=== PATIENT | male | born 1960 | race Caucasian/White ===

== ENCOUNTER 2020-06-21 10:27 | Emergency (ER) | payer SELFPAY ==
[2020-06-21 11:42] LABS: ABSOLUTE EOSINOPHILS # (AUTO) 0.1 10^3/uL (0.0-0.6); ABSOLUTE LYMPHOCYTES (AUTO) 1.3 10^3/uL (0.5-4.7); ABSOLUTE MONOCYTES (AUTO) 0.5 10^3/uL (0.1-1.4); ABSOLUTE NEUT (AUTO) 2.7 10^3/uL (1.7-8.2); BASOPHILS % (AUTO) 0.7 % (0-2); EOSINOPHILS % (AUTO) 2.2 % (0-6); HEMATOCRIT 33.8 % (37.9-51.0); HEMOGLOBIN 11.9 g/dL (13.5-17.0); LYMPHOCYTES % (AUTO) 27.5 % (13-45); MEAN CORPUSCULAR HGB CONC 35.4 g/dL (32.0-36.0); MEAN CORPUSCULAR VOLUME 105 fl (80-97); RED BLOOD COUNT 3.23 10^6/uL (4.35-5.55); RED CELL DISTRIBUTION WIDTH 15.8 % (11.5-14.0); SEGMENTED NEUTROPHILS % (AUTO) 58.6 % (42-78); TOTAL CELLS COUNTED % (AUTO) 100 %; WHITE BLOOD COUNT 4.6 10^3/uL (4.0-10.5)
[2020-06-21 11:53] LABS: ALBUMIN 2.3 g/dL (3.5-5.0); ALKALINE PHOSPHATASE 360 U/L (38-126); ASPARTATE AMINO TRANSFERASE 113 U/L (17-59); BILIRUBIN,DIRECT 1.9 mg/dL (0.0-0.4); BILIRUBIN,TOTAL 3.4 mg/dL (0.2-1.3); BLOOD UREA NITROGEN 14 mg/dL (7-20); CALCIUM 7.8 mg/dL (8.4-10.2); CARBON DIOXIDE 20 mmol/L (22-30); CHLORIDE 114 mmol/L (98-107); GLUCOSE 108 mg/dL (75-110); TOTAL PROTEIN 6.6 g/dL (6.3-8.2)
[2020-06-21 11:54] LABS: PLATELET COUNT 54 10^3/uL (150-450)
[2020-06-21 12:02] LABS: ANION GAP 4 (5-19)
--- NOTE | 2020-06-21 14:37 | RADIOLOGY REPORT (SQ) ---
EXAM DESCRIPTION: CT ABD/PELVIS WITH IV ONLY IMAGES COMPLETED DATE/TIME: 06/21/2020 2:19 pm REASON FOR STUDY: pain/distention COMPARISON: None. TECHNIQUE: CT scan of the abdomen and pelvis performed using helical scanning technique with dynamic intravenous contrast injection. No oral contrast. Images reviewed with lung, soft tissue, and bone windows. Reconstructed coronal and sagittal MPR images reviewed. Delayed images for evaluation of the urinary system also acquired. All images stored on PACS. All CT scanners at this facility use dose modulation, iterative reconstruction, and/or weight based d osing when appropriate to reduce radiation dose to as low as reasonably achievable (ALARA). [facility]: Dose Right [facility]: CareDose [facility]: Dose Right [facility]: Teradose 4D [facility]: [employer] CONTRAST TYPE AND DOSE: contrast/concentration: Isovue 350.00 mmol/ml; Total Contrast Delivered: 91. 0 ml; Total Saline Delivered: 33.2 ml RENAL FUNCTION: BUN 14 creatinine 0.75. RADIATION DOSE: CT Rad equipment meets quality standard of care and radiation dose reduction techniq ues were employed. CTDIvol: 11.7 - 11.8 mGy. DLP: 1274 mGy-cm.. LIMITATIONS: None. FINDINGS: LOWER CHEST: No significant findings. No nodules or infiltrates. LIVER: Normal size. Possible mild nodular contour. No masses. No dilated ducts. SPLEEN: Normal size. No focal lesions. PANCREAS: No masses. No significant calcifications. No adjacent inflammation or peripancreatic fluid collections. Pancreatic duct not dilated. GALLBLADDER: No identified stones by CT criteria. No inflammatory changes to suggest cholecystitis. ADRENAL GLANDS: No significant masses or asymmetry. RIGHT KIDNEY AND URETER: No solid masses. No significant calcifications. No hydronephrosis or hyd roureter. LEFT KIDNEY AND URETER: No solid masses. No significant calcifications. No hydronephrosis or hydr oureter. AORTA AND VESSELS: No aneurysm. No dissection. Renal arteries, SMA, celiac without stenosis. RETROPERITONEUM: No retroperitoneal adenopathy, hemorrhage or masses. BOWEL AND PERITONEAL CAVITY: No masses or inflammatory changes. Moderate ascites. No peritoneal mas ses. APPENDIX: Normal. PELVIS: No mass. Normal bladder. ABDOMINAL WALL: No masses. No hernias. BONES: No significant or acute findings. OTHER: No other significant finding. IMPRESSION: MODERATE ASCITES. POSSIBLE MILD NODULAR CONTOUR OF THE LIVER WHICH MAY INDICATE UNDERLY ING CIRRHOSIS. NO OTHER SIGNIFICANT OR ACUTE FINDING IN THE ABDOMEN OR PELVIS ON CT SCAN WITH IV CON TRAST. TECHNICAL DOCUMENTATION: JOB ID: [id number] Quality ID # [id number]: Final reports with documentation of one or more dose reduction techniques (e.g., Au tomated exposure control, adjustment of the mA and/or kV according to patient size, use of iterative reconstruction technique) 2010 [employer]- All Rights Reserved Reading location - IP/workstation name: [email or web address]
--- NOTE | 2020-06-21 14:53 | ER Document Report ---
ED General - General Chief Complaint: Abdominal Swelling Stated Complaint: ABDOMINAL PAIN Time Seen by Provider: 06/21/20 11:10 Mode of Arrival: Ambulatory Information source: Patient - HPI Notes: Patient comes in complaining of abdominal pain. He states that he was recently admitted to an outside facility approxi-1 month ago and diagnosed with a stroke. He states that stroke is left him with foot drop and he has had to use a cane. He states over the last month or so he is noticed that his abdomen was come more distended and painful. And has had some vomiting. He states he does drink alcohol regularly and is still drinking. He states he was brought here by a friend today because he had been complaining about the abdominal pain. The abdominal pain is intermittent. It is mainly in the lower part of the abdomen. It is unknown what makes it better or worse. It does radiate across both sides of the abdomen. It appears to be mild to moderate in intensity and a crampy sensation. No chest pain or shortness of breath. He states he is not currently have a primary care physician. - Related Data Allergies/Adverse Reactions: No Known Allergies Allergy (Unverified 06/21/20 11:21) Past Medical History - General Information source: Patient - Social History Smoking Status: Current Every Day Smoker Chew tobacco use (# tins/day): No Frequency of alcohol use: 5-6 days ago last drink Drug Abuse: None Family History: Reviewed & Not Pertinent Patient has homicidal ideation: No Review of Systems - Review of Systems Constitutional: denies: Chills, Fever Cardiovascular: denies: Chest pain, Palpitations Respiratory: denies: Cough, Short of breath -: Yes All other systems reviewed and negative Physical Exam - Vital signs Vitals: Temp 97.8 F 06/21/20 10:29 Interpretation: Normal - General General appearance: Appears well, Alert - HEENT Head: Normocephalic, Atraumatic Eyes: Normal Pupils: PERRL - Respiratory Respiratory status: No respiratory distress Chest status: Nontender Breath sounds: Normal Chest palpation: Normal - Cardiovascular Rhythm: Regular Heart sounds: Normal auscultation Murmur: No - Abdominal Inspection: Obese Distension: Distended Bowel sounds: Hypoactive Tenderness: Tender - Back Back: Normal, Nontender - Extremities General upper extremity: Normal inspection, Nontender, Normal color, Normal ROM, Normal temperature General lower extremity: Normal inspection, Nontender, Normal color, Normal ROM, Normal temperature, Normal weight bearing. No: Zeenat's sign - Neurological Neuro grossly intact: Yes Cognition: Normal Orientation: AAOx4 Luz Maria Coma Scale Eye Opening: Spontaneous Luz Maria Coma Scale Verbal: Oriented Luz Maria Coma Scale Motor: Obeys Commands [place] Coma Scale Total: 15 Speech: Normal Motor strength normal: LUE, RUE, LLE, RLE Sensory: Normal - Psychological Associated symptoms: Normal affect, Normal mood - Skin Skin Temperature: Warm Skin Moisture: Dry Skin Color: Pale Course - Re-evaluation Re-evalutation: 06/21/20 14:44 Patient presents complaint of some weakness and abdominal distention and pain. He does appear to have cirrhosis and admits to drinking fairly regularly. I will give the patient discharge information about [facility] as well as discharge information on ceasing alcohol use. I am also going to refer the patient to outpatient gastroenterology for further evaluation. Patient's vital signs are stable labs are consistent with an alcoholic hepatitis but there are no s ignificant abnormalities requiring further evaluation in the emergency department. - Vital Signs Vital signs: Temp Pulse Resp BP Pulse Ox 97.8 F 06/21/20 10:29 - Laboratory Result Diagrams: 06/21/20 11:23 06/21/20 11:23 Laboratory results interpreted by me: 06/21/20 06/21/20 11:23 11:23 RBC 3.23 L Hgb 11.9 L Hct 33.8 L MCV 105 H MCH 37.0 H RDW 15.8 H Plt Count 54 L Chloride 114 H Carbon Dioxide 20 L Anion Gap 4 L Calcium 7.8 L Total Bilirubin 3.4 H Direct Bilirubin 1.9 H AST 113 H ALT 66 H Alkaline Phosphatase 360 H Albumin 2.3 L - Diagnostic Test Radiology reviewed: Image reviewed, Reports reviewed Discharge - Discharge Clinical Impression: Alcohol abuse, Alcoholic liver disease, unspecified Condition: Stable Disposition: HOME, SELF-CARE Instructions: Abdominal Pain ([facility]), Liver Function Abnormality ([facility]), Alcoholic Hepatitis ([facility]), Chronic Alcoholism ([facility]) Additional Instructions: If you dont stop drinking you are going to from liver disease. You need to follow up with Dr. Paniagua as soon as possible. If you are unable to get an appointment with Dr. Paniagua please go to [facility] or [facility] as soon as possible. [facility] can help you with your alcohol use. Please call them as soon as possible. Prescriptions: Chlordiazepoxide HCl 25 mg PO Q6 7 Days #28 capsule Referrals: SHERRI PANIAGUA MD [ACTIVE STAFF] - Follow up in 1 week [facility] [Provider Group] - Follow up in 3-5 days [facility] [Outside] - Follow up tomorrow
== END 2020-06-21 13:00 | disposition home or self-care (01) ==
LOC: ER 10:27
DX: F10.10 Alcohol abuse, uncomplicated (principal); K70.9 Alcoholic liver disease, unspecified; R14.0 Abdominal distension (gaseous); R53.1 Weakness; E66.9 Obesity, unspecified; F17.200 Nicotine dependence, unspecified, uncomplicated
CPT/HCPCS: 36415; 74177; 80053; 82140; 85025; 99285

== ENCOUNTER 2020-10-21 14:34 | Emergency (ER) | payer BC ==
--- NOTE | 2020-10-21 16:25 | ER Document Report ---
ED Medical Screen (RME) - General Stated Complaint: BLOATING, CHEST PAIN Time Seen by Provider: 10/21/20 16:04 Notes: Patient is 60-year-old male presents emergency department with a chief complaint of shortness of breath and chest pain. Patient reports that he has had his chest pain and shortness of breath for the past couple of months. 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 Exam: Firm abdomen. I have greeted and performed a rapid initial assessment of this patient. A comprehensive ED assessment and evaluation of the patient, analysis of test results and completion of medical decision making process will be conducted by an additional ED providers. - Related Data Allergies/Adverse Reactions: No Known Allergies Allergy (Unverified 06/21/20 11:21) Physical Exam - Vital signs Vitals: Temp Pulse Resp BP Pulse Ox 98.2 F 91 25 H 166/72 H 100 10/21/20 14:39 10/21/20 14:39 10/21/20 14:39 10/21/20 14:39 10/21/20 14:39 Course - Vital Signs Vital signs: Temp Pulse Resp BP Pulse Ox 98.2 F 91 25 H 166/72 H 100 10/21/20 14:39 10/21/20 14:39 10/21/20 14:39 10/21/20 14:39 10/21/20 14:39
--- NOTE | 2020-10-21 17:00 | RADIOLOGY REPORT (SQ) ---
EXAM DESCRIPTION: CHEST SINGLE VIEW IMAGES COMPLETED DATE/TIME: 10/21/2020 4:49 pm REASON FOR STUDY: chest pain COMPARISON: None. NUMBER OF VIEWS: One view. TECHNIQUE: Single frontal radiographic view of the chest acquired. LIMITATIONS: None. FINDINGS: LUNGS AND PLEURA: Low lung volumes. No opacities, masses or pneumothorax. No pleural eff usion. MEDIASTINUM AND HILAR STRUCTURES: No masses. No contour abnormality. HEART AND VASCULAR STRUCTURES: Normal size. No evidence for failure. BONES: No acute findings. HARDWARE: None in the chest. OTHER: No other significant finding. IMPRESSION: LOW LUNG VOLUMES. NO SIGNIFICANT RADIOGRAPHIC FINDING IN THE CHEST. TECHNICAL DOCUMENTATION: JOB ID: [id number] 2010 [employer]- All Rights Reserved Reading location - IP/workstation name: [email or web address]
[2020-10-21 17:46] LABS: ABSOLUTE BASOPHILS # (AUTO) 0.1 10^3/uL (0.0-0.2); ABSOLUTE EOSINOPHILS # (AUTO) 0.2 10^3/uL (0.0-0.6); ABSOLUTE LYMPHOCYTES (AUTO) 1.1 10^3/uL (0.5-4.7); ABSOLUTE MONOCYTES (AUTO) 0.8 10^3/uL (0.1-1.4); ABSOLUTE NEUT (AUTO) 2.6 10^3/uL (1.7-8.2); BASOPHILS % (AUTO) 1.2 % (0-2); EOSINOPHILS % (AUTO) 3.6 % (0-6); HEMATOCRIT 30.6 % (37.9-51.0); HEMOGLOBIN 10.8 g/dL (13.5-17.0); LYMPHOCYTES % (AUTO) 22.9 % (13-45); MEAN CORPUSCULAR HEMOGLOBIN 37.9 pg (27.0-33.4); MEAN CORPUSCULAR HGB CONC 35.4 g/dL (32.0-36.0); MEAN CORPUSCULAR VOLUME 107 fl (80-97); RED BLOOD COUNT 2.86 10^6/uL (4.35-5.55); RED CELL DISTRIBUTION WIDTH 17.2 % (11.5-14.0); SEGMENTED NEUTROPHILS % (AUTO) 55.3 % (42-78); TOTAL CELLS COUNTED % (AUTO) 100 %; WHITE BLOOD COUNT 4.8 10^3/uL (4.0-10.5)
[2020-10-21 17:54] LABS: ALBUMIN 2.6 g/dL (3.5-5.0); ALKALINE PHOSPHATASE 277 U/L (38-126); ASPARTATE AMINO TRANSFERASE 115 U/L (17-59); BILIRUBIN,DIRECT 1.3 mg/dL (0.0-0.4); BILIRUBIN,TOTAL 3.9 mg/dL (0.2-1.3); BLOOD UREA NITROGEN 19 mg/dL (7-20); CALCIUM 7.9 mg/dL (8.4-10.2); CREATINE KINASE 547 U/L (55-170); POTASSIUM 4.1 mmol/L (3.6-5.0); TOTAL PROTEIN 7.8 g/dL (6.3-8.2)
[2020-10-21 18:05] LABS: NT PRO BNP 128 pg/mL (<125)
[2020-10-21 18:15] LABS: TROPONIN I < 0.012 ng/mL
[2020-10-21 18:28] LABS: ANION GAP 4 (5-19)
[2020-10-21 18:29] LABS: CARBON DIOXIDE 27 mmol/L (22-30); CHLORIDE 110 mmol/L (98-107)
[2020-10-21 18:31] LABS: GLUCOSE 69 mg/dL (75-110)
[2020-10-21 18:46] LABS: PLATELET COUNT 59 10^3/uL (150-450)
[2020-10-21] MEDS ORDERED: OXYCODONE HCL IR 5 MG TABLET PO ONE (21:10)
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
[2020-10-21] MEDS ORDERED: LACTULOSE SYRUP 20 GM/30 ML UDCUP PO ONE (22:24)
[2020-10-21 22:48] LABS: INTERNATIONAL RATION (INR) 2.13; PROTHROMBIN TIME 23.9 SEC (11.4-15.4)
[2020-10-21 22:49] LABS: PARTIAL THROMBOPLASTIN TIME 38.9 SEC (23.5-35.8)
--- NOTE | 2020-10-22 00:22 | RADIOLOGY REPORT (SQ) ---
CT abdomen and pelvis with contrast on 10/21/2020 at 11:40 PM CLINICAL INDICATION: Generalized abdominal pain, history of cirrhosis TECHNIQUE: Multiple axial images are obtained throughout the abdomen and pelvis following the administration of IV contrast, 100 mL of Omnipaque 350contrast was administered intravenously without complication. This exam was performed according to our departmental dose-optimization program, which includes automated exposure control, adjustment of the mA and/or kV according to patient size and/or use of iterative reconstruction technique. Total DLP is 1886.47 mGy*cm. COMPARISON: 06/21/2020 FINDINGS: Abdomen: There is minimal bibasilar atelectasis. There is a slightly irregular contour of the liver consistent with changes of cirrhosis. Mild splenomegaly is noted with the spleen measuring 15.4 cm in greatest [id number] length. The solid abdominal organs are otherwise unremarkable. Large amount of ascites is noted in the abdomen and pelvis. Anasarca is noted in the subcutaneous tissues. There is no free air in the abdomen. Postsurgical changes are again noted along the distal stomach and proximal small bowel. There is no abdominal adenopathy. The abdominal portion of the GI tract is otherwise unremarkable. Pelvis: There are small left greater than right inguinal hernias containing only fat. Large amount of ascites is noted in the pelvis. There is no pelvic adenopathy. There is some mild wall thickening of the cecum and ascending colon likely bowel related changes of portal hypertension. The pelvic portion of the GI tract is otherwise unremarkable. Degenerative changes are noted in the spine. No acute bony abnormality is noted. IMPRESSION: 1. Changes of cirrhosis with mild splenomegaly and evidence of portal hypertension with large amount of ascites in the abdomen and pelvis. 2. Otherwise no acute abnormality.
--- NOTE | 2020-10-22 10:27 | RADIOLOGY REPORT (SQ) ---
EXAM DESCRIPTION: U/S ABD PARACENTESIS IMAGES COMPLETED DATE/TIME: 10/22/2020 10:16 am REASON FOR STUDY: Ascites COMPARISON: CT of the abdomen dated 10/21/2020. LIMITATIONS: None. PROCEDURE: Procedure, risks, benefit, and alternative explained to patient who then gave written con sent. The right lower abdominal wall marked using ultrasound guidance. A time-out was called for co rrect marking verification. Abdomen prepped and draped using sterile technique. Local anesthesia ach ieved using 7 ml of 1% lidocaine injection. A 6fr [id number] set was introduced into the perito tiburcio cavity. Fluid was drained. The catheter was removed and entry site was covered with sterile ba ndage. No immediate complications noted. Images acquired during the procedure were stored on PACS. FINDINGS: ENTRY SITE: right lower quadrant. FLUID VOLUME: 4,000 FLUID ANALYSIS: Straw-colored OTHER: Therapeutic only. IMPRESSION: SUCCESSFUL ULTRASOUND GUIDED PARACENTESIS. COMMENT: Patient medication list reviewed:Yes- Quality ID# [id number]:Eligible professional attests to docu menting in the medical record they obtained, updated, or reviewed the patient's current medications. TECHNICAL DOCUMENTATION: JOB ID: [id number] 2010 [employer]- All Rights Reserved Reading location - IP/workstation name: [email or web address]
[2020-10-22 13:04] VITALS: BP 140/71
--- NOTE | 2020-10-24 14:55 | EKG REPORT ---
SEVERITY:- OTHERWISE NORMAL ECG - SINUS RHYTHM LEFT AXIS DEVIATION : Confirmed by: Magdalena Almanzar 24-Oct-2020 14:54:13
== END 2020-10-22 13:03 | disposition home or self-care (01) ==
LOC: ER 14:34
DX: R18.8 Other ascites (principal); K74.69 Other cirrhosis of liver; R07.9 Chest pain, unspecified; R10.9 Unspecified abdominal pain; M79.89 Other specified soft tissue disorders; F17.210 Nicotine dependence, cigarettes, uncomplicated; I10 Essential (primary) hypertension
CPT/HCPCS: 36415; 49083; 71045; 74177; 80053; 82140; 82550; 82962; 83690; 83735; 83880; 84484; 85025; 85610; 85730; 93005; 93010; 99285; 99406

== ENCOUNTER 2020-10-24 12:42 | Emergency (ER) | payer BC ==
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
[2020-10-24 15:32] LABS: ABSOLUTE BASOPHILS # (AUTO) 0.1 10^3/uL (0.0-0.2); ABSOLUTE EOSINOPHILS # (AUTO) 0.2 10^3/uL (0.0-0.6); ABSOLUTE LYMPHOCYTES (AUTO) 1.1 10^3/uL (0.5-4.7); ABSOLUTE MONOCYTES (AUTO) 0.8 10^3/uL (0.1-1.4); ABSOLUTE NEUT (AUTO) 2.7 10^3/uL (1.7-8.2); EOSINOPHILS % (AUTO) 3.6 % (0-6); HEMATOCRIT 33.4 % (37.9-51.0); HEMOGLOBIN 11.5 g/dL (13.5-17.0); LYMPHOCYTES % (AUTO) 23.1 % (13-45); MEAN CORPUSCULAR HEMOGLOBIN 37.3 pg (27.0-33.4); MEAN CORPUSCULAR HGB CONC 34.3 g/dL (32.0-36.0); MEAN CORPUSCULAR VOLUME 109 fl (80-97); MONOCYTES % (AUTO) 16.6 % (3-13); RED BLOOD COUNT 3.08 10^6/uL (4.35-5.55); RED CELL DISTRIBUTION WIDTH 16.8 % (11.5-14.0); SEGMENTED NEUTROPHILS % (AUTO) 55.7 % (42-78); TOTAL CELLS COUNTED % (AUTO) 100 %; WHITE BLOOD COUNT 4.9 10^3/uL (4.0-10.5)
[2020-10-24 15:42] LABS: INTERNATIONAL RATION (INR) 1.97; PROTHROMBIN TIME 22.5 SEC (11.4-15.4)
[2020-10-24 15:43] LABS: PARTIAL THROMBOPLASTIN TIME 35.1 SEC (23.5-35.8)
[2020-10-24 15:48] LABS: APPEARANCE,URINE CLEAR; BILIRUBIN,URINE NEGATIVE (NEGATIVE); COLOR,URINE AMBER; GLUCOSE, URINE NEGATIVE (NEGATIVE); KETONES,URINE TRACE mg/dL (NEGATIVE); LEUKOCYTE ESTERASE,URINE NEGATIVE (NEGATIVE); NITRITE,URINE NEGATIVE (NEGATIVE); PROTEIN,URINE 30 mg/dL (NEGATIVE); URINE SPECIFIC GRAVITY 1.032
[2020-10-24 16:01] LABS: PLATELET COUNT 65 10^3/uL (150-450)
--- NOTE | 2020-10-24 16:11 | RADIOLOGY REPORT (SQ) ---
EXAM DESCRIPTION: CT ABD/PELVIS WITH IV ONLY IMAGES COMPLETED DATE/TIME: 10/24/2020 3:55 pm REASON FOR STUDY: Abdominal pain, distention, recent paracentesis COMPARISON: 10/21/2020 TECHNIQUE: CT scan of the abdomen and pelvis performed using helical scanning technique with dynamic intravenous contrast injection. No oral contrast. Images reviewed with lung, soft tissue, and bone windows. Reconstructed coronal and sagittal MPR images reviewed. Delayed images for evaluation of the urinary system also acquired. All images stored on PACS. All CT scanners at this facility use dose modulation, iterative reconstruction, and/or weight based d osing when appropriate to reduce radiation dose to as low as reasonably achievable (ALARA). [facility]: Dose Right [facility]: CareDose [facility]: Dose Right [facility]: Teradose 4D [facility]: PhilSmile CONTRAST TYPE AND DOSE: contrast/concentration: Isovue 350.00 mmol/ml; Total Contrast Delivered: 100 .0 ml; Total Saline Delivered: 60.0 ml RENAL FUNCTION: BUN 19, creatinine 0.64 RADIATION DOSE: CT Rad equipment meets quality standard of care and radiation dose reduction techniq ues were employed. CTDIvol: 16.5 - 20.7 mGy. DLP: 2071 mGy-cm.. LIMITATIONS: None. FINDINGS: LOWER CHEST: No significant findings. No nodules or infiltrates. LIVER: Stable from October 21. Cirrhotic in appearance. No focal masses P SPLEEN: Mild splenomegaly. PANCREAS: No masses. No significant calcifications. No adjacent inflammation or peripancreatic fluid collections. Pancreatic duct not dilated. GALLBLADDER: No identified stones by CT criteria. No inflammatory changes to suggest cholecystitis. ADRENAL GLANDS: No significant masses or asymmetry. RIGHT KIDNEY AND URETER: No solid masses. No significant calcifications. No hydronephrosis or hyd roureter. LEFT KIDNEY AND URETER: No solid masses. No significant calcifications. No hydronephrosis or hydr oureter. AORTA AND VESSELS: No aneurysm. No dissection. Renal arteries, SMA, celiac without stenosis. RETROPERITONEUM: No retroperitoneal adenopathy, hemorrhage or masses. BOWEL AND PERITONEAL CAVITY: Moderate volume ascites again noted slightly decreased from prior study. The patient has undergone paracentesis with 4000 mL of fluid removed. Probable small bowel wall th ickening related to the ascites. No obstruction. Postsurgical changes surrounding the stomach and p roximal duodenum. APPENDIX: Normal. PELVIS: No mass. No free fluid. Normal bladder. ABDOMINAL WALL: Subcutaneous emphysema is again noted. BONES: No significant or acute findings. OTHER: No other significant finding. IMPRESSION: No interval change. Moderate volume ascites slightly decreased from prior study. Appar ent small bowel wall edema is probably related to the ascites. Superimposed enteritis cannot be excl uded. No evidence of bowel obstruction. Nodular appearing liver consistent with cirrhosis. Mild splenomegaly. TECHNICAL DOCUMENTATION: JOB ID: [id number] Quality ID # [id number]: Final reports with documentation of one or more dose reduction techniques (e.g., Au tomated exposure control, adjustment of the mA and/or kV according to patient size, use of iterative reconstruction technique) 2010 [employer]- All Rights Reserved Reading location - IP/workstation name: [email or web address]
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
[2020-10-24] MEDS ORDERED: FENTANYL CITRATE INJ/PF 100 MCG/2 ML AMPUL IV ONE (19:26)
[2020-10-24] MEDS ORDERED: ONDANSETRON HCL INJ/PF 4 MG/2 ML SDV IV ONE (19:26)
[2020-10-24 19:39] LABS: ALBUMIN 2.1 g/dL (3.5-5.0); ALKALINE PHOSPHATASE 285 U/L (38-126); ASPARTATE AMINO TRANSFERASE 98 U/L (17-59); BILIRUBIN,TOTAL 2.7 mg/dL (0.2-1.3); BLOOD UREA NITROGEN 15 mg/dL (7-20); CALCIUM 7.3 mg/dL (8.4-10.2); CARBON DIOXIDE 23 mmol/L (22-30); CHLORIDE 112 mmol/L (98-107); GLUCOSE 86 mg/dL (75-110); TOTAL PROTEIN 6.5 g/dL (6.3-8.2)
[2020-10-24 19:44] LABS: ANION GAP 2 (5-19)
[2020-10-24 20:50] VITALS: BP 139/91
== END 2020-10-24 21:37 | disposition home or self-care (01) ==
LOC: ER 12:42
DX: K74.60 Unspecified cirrhosis of liver (principal); R18.8 Other ascites; R16.1 Splenomegaly, not elsewhere classified; R10.32 Left lower quadrant pain; D68.9 Coagulation defect, unspecified; I10 Essential (primary) hypertension; F17.210 Nicotine dependence, cigarettes, uncomplicated; Z98.890 Other specified postprocedural states
CPT/HCPCS: 99285; 96374; 96375; 36415; 87040; 83605; 83690; 85025; 85610; 85730; 86140; 87077; 80053; 81001; 74177; J3010; J2405

== ENCOUNTER 2020-11-09 17:01 | Inpatient (IN) | payer BC ==
[2020-11-09 18:10] LABS: VENOUS BLOOD BASE EXCESS -1.3 mmol/L; VENOUS BLOOD HCO3 21.8 mmol/L (20-32); VENOUS BLOOD PCO2 32.8 mmHg (35-63); VENOUS BLOOD PH 7.44 (7.30-7.42)
[2020-11-09 18:14] LABS: ABSOLUTE EOSINOPHILS # (AUTO) 0.1 10^3/uL (0.0-0.6); ABSOLUTE MONOCYTES (AUTO) 0.9 10^3/uL (0.1-1.4); ABSOLUTE NEUT (AUTO) 6.5 10^3/uL (1.7-8.2); BASOPHILS % (AUTO) 0.6 % (0-2); EOSINOPHILS % (AUTO) 1.2 % (0-6); HEMATOCRIT 32.3 % (37.9-51.0); HEMOGLOBIN 11.1 g/dL (13.5-17.0); INTERNATIONAL RATION (INR) 2.79; LYMPHOCYTES % (AUTO) 11.7 % (13-45); MEAN CORPUSCULAR HEMOGLOBIN 36.3 pg (27.0-33.4); MEAN CORPUSCULAR HGB CONC 34.4 g/dL (32.0-36.0); MEAN CORPUSCULAR VOLUME 106 fl (80-97); MONOCYTES % (AUTO) 10.9 % (3-13); PROTHROMBIN TIME 29.3 SEC (11.4-15.4); RED BLOOD COUNT 3.07 10^6/uL (4.35-5.55); RED CELL DISTRIBUTION WIDTH 14.7 % (11.5-14.0); SEGMENTED NEUTROPHILS % (AUTO) 75.6 % (42-78); TOTAL CELLS COUNTED % (AUTO) 100 %; WHITE BLOOD COUNT 8.6 10^3/uL (4.0-10.5)
[2020-11-09 18:16] LABS: ALBUMIN 2.2 g/dL (3.5-5.0); ALKALINE PHOSPHATASE 151 U/L (38-126); ASPARTATE AMINO TRANSFERASE 132 U/L (17-59); BILIRUBIN,DIRECT 2.2 mg/dL (0.0-0.4); BILIRUBIN,TOTAL 6.1 mg/dL (0.2-1.3); BLOOD UREA NITROGEN 35 mg/dL (7-20); CALCIUM 7.7 mg/dL (8.4-10.2); CARBON DIOXIDE 21 mmol/L (22-30); CHLORIDE 116 mmol/L (98-107); GLUCOSE 72 mg/dL (75-110); POTASSIUM 4.1 mmol/L (3.6-5.0); TOTAL PROTEIN 6.5 g/dL (6.3-8.2)
[2020-11-09 18:18] LABS: ANION GAP 4 (5-19)
--- NOTE | 2020-11-09 18:23 | RADIOLOGY REPORT (SQ) ---
EXAM DESCRIPTION: CHEST SINGLE VIEW IMAGES COMPLETED DATE/TIME: 11/09/2020 4:58 pm REASON FOR STUDY: possible sepsis COMPARISON: 10/21/2020 EXAM PARAMETERS: NUMBER OF VIEWS: One view. TECHNIQUE: Single frontal radiographic view of the chest acquired. RADIATION DOSE: NA LIMITATIONS: Lordotic positioning. FINDINGS: LUNGS AND PLEURA: No opacities, masses or pneumothorax. No pleural effusion. MEDIASTINUM AND HILAR STRUCTURES: No masses. Contour normal. HEART AND VASCULAR STRUCTURES: Heart normal in size. Normal vasculature. BONES: No acute findings. HARDWARE: None in the chest. OTHER: No other significant finding. IMPRESSION: NO ACUTE RADIOGRAPHIC FINDING IN THE CHEST. TECHNICAL DOCUMENTATION: JOB ID: [id number] 2010 [employer]- All Rights Reserved Reading location - IP/workstation name: [id number]
[2020-11-09 18:33] LABS: PLATELET COUNT 66 10^3/uL (150-450)
--- NOTE | 2020-11-09 19:26 | EKG REPORT ---
SEVERITY:- OTHERWISE NORMAL ECG - SINUS RHYTHM LEFT AXIS DEVIATION : Confirmed by: Jason Rose MD 09-Nov-2020 19:25:37
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
[2020-11-09] MEDS ORDERED: DEXTROSE 5%-NORMAL SALINE 1,000 ML IV ONE (19:53)
[2020-11-09 20:09] LABS: ACETAMINOPHEN < 10 ug/mL (10-30); ALCOHOL < 10 mg/dL (NONE DETECTED); SALICYLATE < 1.0 mg/dL (2.0-20.0)
[2020-11-09] MEDS ORDERED: LACTULOSE SYRUP 20 GM/30 ML UDCUP PO ONE (20:21)
--- NOTE | 2020-11-09 21:09 | RADIOLOGY REPORT (SQ) ---
EXAM DESCRIPTION: CT HEAD WITHOUT IV CONTRAST COMPLETED DATE/TME: 11/09/2020 20:31 CLINICAL HISTORY: 60 years, Male, AMS, eval bleed COMPARISON: None. TECHNIQUE: Axial images without IV contrast. Sagittal coronal reconstruction. Images stored on PACS. All CT scanners at this facility use dose modulation, iterative reconstruction, and/or weight based dosing when appropriate to reduce radiation dose to as low as reasonably achievable (ALARA). FINDINGS: Mild central and cortical atrophy. 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 No obvious acute intra-axial or extra-axial abnormality. Minimal mucosal thickening left maxillary sinus. Mastoid air cells and bony calvarium are unremarkable. Suggestion of mild scalp hematoma in the posterior vertex on the left. IMPRESSION: 1. No acute intracranial abnormalities. 2. Mild left maxillary sinus disease. 3. Suggestion of small scalp hematoma left vertex. TECHNICAL DOCUMENTATION: Quality ID # 436: Final reports with documentation of one or more dose reduction techniques (e.g., Automated exposure control, adjustment of the mA and/or kV according to patient size, use of iterative reconstruction technique) copyright 2011 [employer]- All Rights Reserved
--- OUTSIDE RECORDS SUMMARY | 2020-11-09 21:11 | XMS REPORT ---
:1960 Author Organization [facility] Address [facility] [address] [place] [address] Care Team Providers Name Role Phone Unavailable Unavailable Unavailable Allergies, Adverse Reactions, Alerts This patient has no known allergies or adverse reactions. Medications This patient has no known medications. Problems This patient has no known problems. Procedures This patient has no known procedures. Results This patient has no known results. Social History This patient has no known social history. Vital Signs This patient has no known vital signs.
[2020-11-09 22:59] LABS: APPEARANCE,URINE CLEAR; BILIRUBIN,URINE NEGATIVE (NEGATIVE); COLOR,URINE AMBER; GLUCOSE, URINE NEGATIVE (NEGATIVE); KETONES,URINE TRACE mg/dL (NEGATIVE); LEUKOCYTE ESTERASE,URINE NEGATIVE (NEGATIVE); NITRITE,URINE NEGATIVE (NEGATIVE); PROTEIN,URINE 30 mg/dL (NEGATIVE)
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
[2020-11-09] MEDS ORDERED: THIAMINE HCL 100 MG in NORMAL SALINE 50 ML IV ONE (23:18)
[2020-11-09 23:19] LABS: URINE AMPHETAMINES SCREEN NEGATIVE; URINE BARBITURATES SCREEN NEGATIVE; URINE BENZODIAZEPINES SCREEN NEGATIVE; URINE COCAINE SCREEN NEGATIVE; URINE METHADONE SCREEN NEGATIVE; URINE PHENCYCLIDINE SCREEN NEGATIVE
[2020-11-09 23:20] LABS: URINE MARIJUANA (THC) SCREEN UNCONFIRMED POSITIVE
[2020-11-10] MEDS ORDERED: THIAMINE HCL INJ 200 MG/2 ML VIAL ONE (00:04)
[2020-11-10] MEDS ORDERED: LACTULOSE SYRUP 20 GM/30 ML UDCUP PO PRN (04:00)
[2020-11-10 06:36] LABS: ABSOLUTE EOSINOPHILS # (AUTO) 0.2 10^3/uL (0.0-0.6); ABSOLUTE LYMPHOCYTES (AUTO) 1.4 10^3/uL (0.5-4.7); ABSOLUTE MONOCYTES (AUTO) 0.7 10^3/uL (0.1-1.4); ABSOLUTE NEUT (AUTO) 4.2 10^3/uL (1.7-8.2); ABSOLUTE RETICS # 0.052 10^6/uL (0.028-0.122); BASOPHILS % (AUTO) 0.5 % (0-2); EOSINOPHILS % (AUTO) 3.2 % (0-6); HEMATOCRIT 27.9 % (37.9-51.0); HEMOGLOBIN 9.7 g/dL (13.5-17.0); LYMPHOCYTES % (AUTO) 21.5 % (13-45); MEAN CORPUSCULAR HEMOGLOBIN 37.3 pg (27.0-33.4); MEAN CORPUSCULAR VOLUME 107 fl (80-97); MONOCYTES % (AUTO) 10.9 % (3-13); RED BLOOD COUNT 2.61 10^6/uL (4.35-5.55); RETICULOCYTE COUNT (AUTO) 1.99 % (0.66-2.85); SEGMENTED NEUTROPHILS % (AUTO) 63.9 % (42-78); TOTAL CELLS COUNTED % (AUTO) 100 %; WHITE BLOOD COUNT 6.6 10^3/uL (4.0-10.5)
[2020-11-10 06:40] LABS: INTERNATIONAL RATION (INR) 2.81; PROTHROMBIN TIME 29.5 SEC (11.4-15.4)
[2020-11-10 07:37] LABS: PLATELET COUNT 47 10^3/uL (150-450)
[2020-11-10 08:01] LABS: ALKALINE PHOSPHATASE 131 U/L (38-126); ANION GAP 3 (5-19); ASPARTATE AMINO TRANSFERASE 131 U/L (17-59); BILIRUBIN,TOTAL 5.1 mg/dL (0.2-1.3); BLOOD UREA NITROGEN 36 mg/dL (7-20); CALCIUM 7.9 mg/dL (8.4-10.2); CARBON DIOXIDE 21 mmol/L (22-30); CHLORIDE 117 mmol/L (98-107); FOLATE 7.86 ng/mL (>2.76); GLUCOSE 68 mg/dL (75-110); IRON(TIBC) 74.5 ug/dL (49-181); POTASSIUM 3.9 mmol/L (3.6-5.0); TOTAL PROTEIN 6.2 g/dL (6.3-8.2)
[2020-11-10] MEDS ORDERED: PROMETHAZINE HCL 6.25 MG/5 ML SYRUP 60 ML PO PRN (09:59)
[2020-11-10] MEDS ORDERED: METOPROLOL TARTRATE PF/INJ 5 MG/5 ML SDV IV PRN (09:59)
[2020-11-10] MEDS ORDERED: ONDANSETRON 4 MG TAB.RAPDIS PO PRN (09:59)
[2020-11-10] MEDS ORDERED: PROMETHAZINE HCL INJ 25 MG/1 ML VIAL IV PRN (09:59)
[2020-11-10] MEDS ORDERED: ONDANSETRON HCL INJ/PF 4 MG/2 ML SDV IV PRN (09:59)
[2020-11-10] MEDS ORDERED: THIAMINE HCL 100 MG in NORMAL SALINE 50 ML IV SCH (10:00)
[2020-11-10] MEDS ORDERED: MULTIVITS W-MIN/IRON SOLN 60 ML PO SCH (10:00)
[2020-11-10] MEDS: LACTULOSE SYRUP 20 GM/30 ML UDCUP PO SCH ×3 (10:18→21:36)
[2020-11-10] MEDS: THIAMINE HCL 100 MG TABLET PO SCH (10:18)
[2020-11-10] MEDS: SPIRONOLACTONE 25 MG TABLET PO SCH (10:19)
[2020-11-10] MEDS: FUROSEMIDE 40 MG TABLET PO SCH (10:19)
[2020-11-10] MEDS: FOLIC ACID 1 MG TABLET PO SCH (10:19)
[2020-11-10] MEDS: CYANOCOBALAMIN (VITAMIN B-12) INJ 1000 MCG/1 ML VIAL IM SCH (10:20)
--- NOTE | 2020-11-10 10:49 | PDOC PROGRESS REPORT ---
Subjective Date:: 11/10/20 Subjective:: As per attending physician's note CRISTINA BROWNE is a 60 year old male The patient is suffering from alcoholic liver cirrhosis with ascites. He had abdominal paracentesis on 22 October, 4 L of fluid was removed. CT scan of the abdomen and pelvis couple days later revealed cirrhosis with ascites and splenomegaly, no other significant abnormality. It is somewhat unclear whether the patient quit drinking or not. He lives alone but he has some friend who is visiting him time to time. Today he was found in his apartment being confused and the apartment was in a disarray. He was brought to the emergency department. After first dose of lactulose he is alert now. He is still s omewhat confused but cooperative and pleasant. He is oriented to himself, partially oriented to time place and situation. He denies any pain and he does not appear to be in any discomfort. 11/10/2019. No acute events overnight, patient resting in bed no apparent distress, alert and oriented x2, stating that he has a rough night, does not elaborate, denies any auditory visual hallucinations, denies any chest pain, nausea, vomiting, diarrhea. Reason For Visit: HEPATIC ENCEPHALOPATHY,LIVER CIRRHOSIS WITH Physical Exam Vital Signs: Temp Pulse Resp BP Pulse Ox 97.4 F 75 18 110/53 L 96 11/10/20 08:14 11/10/20 08:00 11/10/20 08:00 11/10/20 08:00 11/10/20 08:00 Intake & Output 11/09/20 11/10/20 11/11/20 06:59 06:59 06:59 Intake Total 1050 Balance 1050 Weight 92.2 kg General appearance: PRESENT: no acute distress, obese, well-developed, well- nourished Head exam: PRESENT: atraumatic, normocephalic Neck exam: ABSENT: carotid bruit, JVD, lymphadenopathy, thyromegaly Respiratory exam: PRESENT: clear to auscultation andree. ABSENT: rales, rhonchi, wheezes Cardiovascular exam: PRESENT: RRR. ABSENT: diastolic murmur, rubs, systolic murmur GI/Abdominal exam: PRESENT: ascites, distended, normal bowel sounds, tenderness - Epigastric tenderness, other - Fluid wave. ABSENT: guarding, mass, organolmegaly, rebound Extremities exam: PRESENT: full ROM. ABSENT: calf tenderness, clubbing, pedal edema Neurological exam: PRESENT: alert, awake, oriented to person, oriented to place, CN II-XII grossly intact. ABSENT: motor sensory deficit Skin exam: PRESENT: petechiae - Bilateral lower extremity worse on the left side. Results Laboratory Results: 11/10/20 05:57 11/10/20 05:57 11/09/20 11/09/20 11/09/20 17:16 17:16 17:16 WBC 8.6 RBC 3.07 L Hgb 11.1 L Hct 32.3 L MCV 106 H MCH 36.3 H MCHC 34.4 RDW 14.7 H Plt Count 66 L Seg Neutrophils % 75.6 Retic Count (auto) VBG pH 7.44 H VBG pCO2 32.8 L VBG HCO3 21.8 VBG Base Excess -1.3 Sodium 141.0 Potassium 4.1 Chloride 116 H Carbon Dioxide 21 L Anion Gap 4 L BUN 35 H Creatinine 0.65 Est GFR ( Amer) > 60 Glucose 72 L Lactic Acid Calcium 7.7 L Magnesium Iron TIBC % Saturation Ferritin Total Bilirubin 6.1 H AST 132 H Alkaline Phosphatase 151 H Ammonia Total Protein 6.5 Albumin 2.2 L Vitamin B12 Folate TSH Urine Color Urine Appearance Urine pH Ur Specific [place] Urine Protein Urine Glucose (UA) Urine Ketones Urine Blood Urine Nitrite Ur Leukocyte Esterase Urine WBC (Auto) Urine RBC (Auto) 11/09/20 11/09/20 11/09/20 17:16 19:41 20:55 WBC RBC Hgb Hct MCV MCH MCHC RDW Plt Count Seg Neutrophils % Retic Count (auto) VBG pH VBG pCO2 VBG HCO3 VBG Base Excess Sodium Potassium Chloride Carbon Dioxide Anion Gap BUN Creatinine Est GFR ( Amer) Glucose Lactic Acid 3.4 H 1.9 Calcium Magnesium Iron TIBC % Saturation Ferritin Total Bilirubin AST Alkaline Phosphatase Ammonia 91.3 H Total Protein Albumin Vitamin B12 Folate TSH Urine Color Urine Appearance Urine pH Ur Specific [place] Urine Protein Urine Glucose (UA) Urine Ketones Urine Blood Urine Nitrite Ur Leukocyte Esterase Urine WBC (Auto) Urine RBC (Auto) 11/09/20 11/10/20 11/10/20 21:52 01:37 05:57 WBC 6.6 RBC 2.61 L Hgb 9.7 L Hct 27.9 L MCV 107 H MCH 37.3 H MCHC 35.0 RDW 15.0 H Plt Count 47 L Seg Neutrophils % 63.9 Retic Count (auto) 1.99 VBG pH VBG pCO2 VBG HCO3 VBG Base Excess Sodium Potassium Chloride Carbon Dioxide Anion Gap BUN Creatinine Est GFR ( Amer) Glucose Lactic Acid 1.6 Calcium Magnesium Iron TIBC % Saturation Ferritin Total Bilirubin AST Alkaline Phosphatase Ammonia Total Protein Albumin Vitamin B12 Folate TSH Urine Color LEIGH ANN Urine Appearance CLEAR Urine pH 5.0 Ur Specific [place] 1.030 Urine Protein 30 H Urine Glucose (UA) NEGATIVE Urine Ketones TRACE H Urine Blood NEGATIVE Urine Nitrite NEGATIVE Ur Leukocyte Esterase NEGATIVE Urine WBC (Auto) 1 Urine RBC (Auto) 0 11/10/20 11/10/20 05:57 05:57 WBC RBC Hgb Hct MCV MCH MCHC RDW Plt Count Seg Neutrophils % Retic Count (auto) VBG pH VBG pCO2 VBG HCO3 VBG Base Excess Sodium 140.5 Potassium 3.9 Chloride 117 H Carbon Dioxide 21 L Anion Gap 3 L BUN 36 H Creatinine 0.65 Est GFR ( Amer) > 60 Glucose 68 L Lactic Acid Calcium 7.9 L Magnesium 1.8 Iron 74.5 TIBC 221 L % Saturation 34 Ferritin 241.00 Total Bilirubin 5.1 H AST 131 H Alkaline Phosphatase 131 H Ammonia Total Protein 6.2 L Albumin 2.0 L Vitamin B12 999.0 H Folate 7.86 TSH 7.44 H Urine Color Urine Appearance Urine pH Ur Specific [place] Urine Protein Urine Glucose (UA) Urine Ketones Urine Blood Urine Nitrite Ur Leukocyte Esterase Urine WBC (Auto) Urine RBC (Auto) Impressions: Chest X-Ray 11/09/20 17:48 IMPRESSION: NO ACUTE RADIOGRAPHIC FINDING IN THE CHEST. Head CT 11/09/20 20:04 IMPRESSION: 1. No acute intracranial abnormalities. 2. Mild left maxillary sinus disease. 3. Suggestion of small scalp hematoma left vertex. TECHNICAL DOCUMENTATION: Quality ID # 436: Final reports with documentation of one or more dose reduction techniques (e.g., Automated exposure control, adjustment of the mA and/or kV according to patient size, use of iterative reconstruction technique) copyright 2011 [employer] All Rights Reserved Assessment and Plan - Diagnosis (1) Acute hepatic encephalopathy Is this a current diagnosis for this admission?: Yes Plan: Most likely due to acute hepatic encephalopathy, presented with elevated ammonia level. Improving. Continue lactulose, titrate to have 3 soft bowel movements 24 hours, continue rifaximin. Continue Lasix and spironolactone, monitor vitals, fall precautions. (2) Alcohol abuse Is this a current diagnosis for this admission?: Yes Plan: Denies any visual or auditory hallucination. Denies any formication. Vitals stable. Continue fall, seizure and DT precautions. As needed benzodiazepines, folic acid, thiamine, B12 and multivitamins. (3) Alcoholic cirrhosis of liver Qualifiers: Ascites presence: with ascites Qualified Code(s): K70.31 - Alcoholic cirrhosis of liver with ascites Is this a current diagnosis for this admission?: Yes Plan: Due to alcoholic cirrhosis. Tense ascites with epigastric abdominal pain on examination. Bilateral lower extremity petechiae, thrombocytopenia and elevated PT/INR. Last paracentesis every second, 4 L removed. Continue hepatic diet, fall precaution, monitor for bleeding. Lasix, spironolactone, rifaximin, lactulose. It is unclear whether he had EGD or not. He said he sees a liver specialist but he could not specify where is the specialist and who is a specialist. I am not quite convinced that he sees a travel director. (4) Macrocytic anemia Is this a current diagnosis for this admission?: Yes Plan: Check anemia studies. Monitor hemoglobin. (5) Thrombocytopenia Is this a current diagnosis for this admission?: Yes Plan: Most likely due to underlying cirrhosis. Monitor for any sign of bleeding. Fall precautions. Supportive transfusions. - Time Time Spent with patient: 35 or more minutes Medications reviewed and adjusted accordingly: Yes Anticipated Discharge Disposition: Home, Self Care Anticipated Discharge Timeframe: within 72 hours
[2020-11-10] MEDS ORDERED: PHYTONADIONE 5 MG TABLET PO ONE (11:00)
[2020-11-10] MEDS: FERROUS SULFATE 325 MG TABLET PO SCH (13:40)
[2020-11-10] MEDS: CEFTRIAXONE SODIUM 1,000 MG in DEXTROSE 5%-WATER 50 ML IV SCH (13:41)
[2020-11-10] MEDS: MULTIVITS W-MIN/IRON SOLN 60 ML PO SCH (13:42)
[2020-11-11] MEDS: LACTULOSE SYRUP 20 GM/30 ML UDCUP PO SCH ×3 (05:19→22:29)
--- NOTE | 2020-11-11 09:54 | XCELERA REPORT ---
[address] [address] Transthoracic Echocardiogram Report Name: CRISTINA BROWNE Age: 60 yrs Gender: Male : 1960 Patient Status: Inpatient Patient Location: [address] [place] [address] Study Date: 11/10/2020 09:07 AM Height: 68 in Weight: 200 lb BSA: 2.0 m2 Procedure: A complete two-dimensional transthoracic echocardiogram was performed (2D, M-mode, spectral and color flow Doppler). The study was technically good with many images being of high quality. Reason For Study: edema Ordering Physician: FORTINO BANKS Performed By: Hue Silverman Interpretation Summary The left ventricle is normal in size. Left ventricular systolic function is normal. The Ejection Fraction estimate is 65-70%. Doppler measurements suggest impaired left ventricular relaxation, which is associated with grade I/IV or mild diastolic dysfunction. No regional wall motion abnormalities noted. Mild LAE. Trace MR, trace TR. There is a mobile, long, thin echo dense strand in the hepatic vein of unclear etiology. Please consider further evaluation with dedicated liver/hepatic vein ultrasound. MMode/2D Measurements & Calculations RVDd: 2.8 cm LVIDd: 4.9 cm FS: 43.4 % Ao root diam: 3.0 cm IVSd: 1.3 cm LVIDs: 2.8 cm EDV(Teich): 115.3 ml Ao root area: 6.9 cm2 LVPWd: 1.0 cm ESV(Teich): 29.6 ml EF(Teich): 74.3 % Doppler Measurements & Calculations MV E max margot: MV dec slope: Ao V2 max: LV V1 max P.5 cm/sec 384.4 cm/sec2 181.8 cm/sec 7.4 mmHg MV A max margot: MV dec time: 0.21 secAo max PG: LV V1 max: 89.7 cm/sec 13.2 mmHg 135.6 cm/sec MV E/A: 0.90 PA V2 max: TR max margot: 142.5 cm/sec 236.7 cm/sec PA max P.1 mmHg TR max P.4 mmHg Left Ventricle The left ventricle is normal in size. Left ventricular systolic function is normal. The Ejection Fraction estimate is 65-70%. Doppler measurements suggest impaired left ventricular relaxation, which is associated with grade I/IV or mild diastolic dysfunction. No regional wall motion abnormalities noted. Right Ventricle The right ventricle is grossly normal size. The right ventricular systolic function is normal. Atria The right atrium is normal. The left atrium is mildly dilated. The interatrial septum is difficult to see, but appears to be grossly normal. Mitral Valve The mitral valve leaflets appear thickened, but open well. There is a trace amount of mitral regurgitation. Aortic Valve The aortic valve is sclerotic, but shows no functional abnormality. No aortic regurgitation is present. Tricuspid Valve The tricuspid valve is not well visualized secondary to technical limitations. There is a trace or physiologic amount of tricuspid regurgitation. Pulmonic Valve The pulmonic valve is not well visualized. There is no pulmonic valvular regurgitation. Great Vessels The aortic root is normal size. The inferior vena cava appeared normal and decreased > 50% with respiration (RAP 5-10 mmHg). Effusions There is no pericardial effusion. Incidental Findings There is a mobile, long, thin echo dense strand in the hepatic vein of unclear etiology. Please consider further evaluation with dedicated liver/hepatic vein ultrasound. : FORTINO BANKS Antonio
[2020-11-11] MEDS: FUROSEMIDE 40 MG TABLET PO SCH (10:43)
[2020-11-11] MEDS: FERROUS SULFATE 325 MG TABLET PO SCH (10:44)
[2020-11-11] MEDS: CYANOCOBALAMIN (VITAMIN B-12) INJ 1000 MCG/1 ML VIAL IM SCH (10:44)
[2020-11-11] MEDS: FOLIC ACID 1 MG TABLET PO SCH (10:44)
[2020-11-11] MEDS: SPIRONOLACTONE 25 MG TABLET PO SCH (10:44)
[2020-11-11] MEDS: THIAMINE HCL 100 MG TABLET PO SCH (10:44)
[2020-11-11] MEDS: MULTIVITS W-MIN/IRON SOLN 60 ML PO SCH (10:45)
--- NOTE | 2020-11-11 11:01 | PDOC PROGRESS REPORT ---
Subjective Date:: 11/11/20 Subjective:: As per attending physician's note CRISTINA BROWNE is a 60 year old male The patient is suffering from alcoholic liver cirrhosis with ascites. He had abdominal paracentesis on 22 October, 4 L of fluid was removed. CT scan of the abdomen and pelvis couple days later revealed cirrhosis with ascites and splenomegaly, no other significant abnormality. It is somewhat unclear whether the patient quit drinking or not. He lives alone but he has some friend who is visiting him time to time. Today he was found in his apartment being confused and the apartment was in a disarray. He was brought to the emergency department. After first dose of lactulose he is alert now. He is still s omewhat confused but cooperative and pleasant. He is oriented to himself, partially oriented to time place and situation. He denies any pain and he does not appear to be in any discomfort. 11/10/2019. No acute events overnight, patient resting in bed no apparent distress, alert and oriented x2, stating that he has a rough night, does not elaborate, denies any auditory visual hallucinations, denies any chest pain, nausea, vomiting, diarrhea. 11/11/2020. No acute events overnight. Stating that he had a better night compared to yesterday, alert and oriented x3 in no apparent distress, denies any auditory or visual hallucinations, complaining of posterior headache, does not remember how he ended up to the hospital or that he had a fall, stating that he lives in a trailer with another friend who is currently out of state in [place], does have some family in [place] but he lives with another friend. Patient denies any fever, chills, nausea, vomiting, diarrhea, constipation or any urinary symptoms. Reason For Visit: HEPATIC ENCEPHALOPATHY,LIVER CIRRHOSIS WITH Physical Exam Vital Signs: Temp Pulse Resp BP Pulse Ox 97.8 F 70 22 H 109/72 97 11/11/20 08:29 11/11/20 08:29 11/11/20 08:29 11/11/20 08:29 11/11/20 08:29 Intake & Output 11/10/20 11/11/20 11/12/20 06:59 06:59 06:59 Intake Total 1050 Output Total 275 Balance 1050 -275 Weight 92.2 kg 94.5 kg General appearance: PRESENT: no acute distress, well-developed, well-nourished Head exam: PRESENT: atraumatic, normocephalic, other - Right mid occipital region tenderness. Neck exam: ABSENT: carotid bruit, JVD, lymphadenopathy, thyromegaly Respiratory exam: PRESENT: clear to auscultation andree. ABSENT: rales, rhonchi, wheezes Cardiovascular exam: PRESENT: RRR. ABSENT: diastolic murmur, rubs, systolic murmur GI/Abdominal exam: PRESENT: distended, normal bowel sounds, soft, tenderness - Epigastric. ABSENT: guarding, mass, organolmegaly, rebound Extremities exam: PRESENT: +2 edema Neurological exam: PRESENT: alert, awake, oriented to person, oriented to place, CN II-XII grossly intact. ABSENT: motor sensory deficit Skin exam: PRESENT: petechiae - Bilateral lower extremity worse on the right side. Results Laboratory Results: 11/10/20 05:57 11/10/20 05:57 11/11/20 05:43 Free T4 1.44 Impressions: Chest X-Ray 11/09/20 17:48 IMPRESSION: NO ACUTE RADIOGRAPHIC FINDING IN THE CHEST. Head CT 11/09/20 20:04 IMPRESSION: 1. No acute intracranial abnormalities. 2. Mild left maxillary sinus disease. 3. Suggestion of small scalp hematoma left vertex. TECHNICAL DOCUMENTATION: Quality ID # 436: Final reports with documentation of one or more dose reduction techniques (e.g., Automated exposure control, adjustment of the mA and/or kV according to patient size, use of iterative reconstruction technique) copyright 2011 [employer]- All Rights Reserved Assessment and Plan - Diagnosis (1) Acute hepatic encephalopathy Is this a current diagnosis for this admission?: Yes Plan: Seems to be back at baseline, patient alert and oriented x3, cooperative and pleasant. Most likely due to hepatic encephalopathy Presented with elevated ammonia level. Continue lactulose, titrate to have 3 soft bowel movements 24 hours, continue rifaximin. Continue Lasix and spironolactone, monitor vitals, fall precautions. (2) Alcohol abuse Is this a current diagnosis for this admission?: Yes Plan: Does not appear to be acutely withdrawing. Denies any visual or auditory hallucination. Denies any formication. Vitals stable. Continue fall, seizure and DT precautions. As needed benzodiazepines, folic acid, thiamine, B12 and multivitamins. (3) Alcoholic cirrhosis of liver Qualifiers: Ascites presence: with ascites Qualified Code(s): K70.31 - Alcoholic cirrho sis of liver with ascites Is this a current diagnosis for this admission?: Yes Plan: Due to alcoholic cirrhosis. Presented with tense ascites with epigastric abdominal pain on examination. Bilateral lower extremity petechiae, thrombocytopenia and elevated PT/INR. Last paracentesis every second, 4 L removed. Continue hepatic diet, fall precaution, monitor for bleeding. Lasix, spironolactone, rifaximin, lactulose. It is unclear whether he had EGD or not. He said he sees a liver specialist but he could not specify where is the specialist and who is a specialist. I am not quite convinced that he sees a aircraft systems technician. (4) Macrocytic anemia Is this a current diagnosis for this admission?: Yes Plan: Likely due to EtOH abuse and cirrhosis. Continue ferrous sulfate, continue multivitamins. (5) Thrombocytopenia Is this a current diagnosis for this admission?: Yes Plan: Most likely due to underlying cirrhosis. Monitor for any sign of bleeding. Fall precautions. Supportive transfusions. (6) Wrist drop, left wrist Is this a current diagnosis for this admission?: Yes Plan: Patient is stating that he does not have history of before this admission. Patient does not recall if he had any trauma due to the fall prior to admission. Denies left upper extremity pain or swelling. No sign of trauma or fracture on physical examination. We will monitor for right now, will get x-ray of left upper extremity. - Time Time Spent with patient: 35 or more minutes Anticipated Discharge Disposition: Group Home Facility Anticipated Discharge Timeframe: within 72 hours
[2020-11-11] MEDS ORDERED: NORMAL SALINE 250 ML IV PRN ×2 (11:11)
[2020-11-11 12:39] LABS: INTERNATIONAL RATION (INR) 2.39; PROTHROMBIN TIME 26.1 SEC (11.4-15.4)
[2020-11-11 12:54] LABS: HEMATOCRIT 27.3 % (37.9-51.0); HEMOGLOBIN 9.6 g/dL (13.5-17.0); MEAN CORPUSCULAR HEMOGLOBIN 37.5 pg (27.0-33.4); MEAN CORPUSCULAR HGB CONC 35.3 g/dL (32.0-36.0); MEAN CORPUSCULAR VOLUME 106 fl (80-97); RED BLOOD COUNT 2.57 10^6/uL (4.35-5.55); RED CELL DISTRIBUTION WIDTH 14.9 % (11.5-14.0); WHITE BLOOD COUNT 5.4 10^3/uL (4.0-10.5)
[2020-11-11 12:57] LABS: PLATELET COUNT 45 10^3/uL (150-450)
--- NOTE | 2020-11-11 14:51 | RADIOLOGY REPORT (SQ) ---
EXAM DESCRIPTION: HAND LEFT 2 VIEWS IMAGES COMPLETED DATE/TIME: 11/11/2020 2:16 pm REASON FOR STUDY: Left Wrist Drop COMPARISON: None. EXAM PARAMETERS: NUMBER OF VIEWS: Two view. TECHNIQUE: AP and lateral radiographic images acquired of the left hand. LIMITATIONS: None. FINDINGS: MINERALIZATION: Normal. BONES: No acute fracture or dislocation. JOINTS: No effusions. SOFT TISSUES: No soft tissue swelling or radiopaque foreign body. OTHER: No other findings. IMPRESSION: No acute osseous abnormality of the left hand. TECHNICAL DOCUMENTATION: JOB ID: [id number] [employer]- All Rights Reserved Reading location - IP/workstation name: [email or web address]
[2020-11-11] MEDS: CEFTRIAXONE SODIUM 1,000 MG in DEXTROSE 5%-WATER 50 ML IV SCH (15:09)
[2020-11-11] MEDS: RIFAXIMIN 550 MG TABLET PO SCH (19:29)
[2020-11-12] MEDS: LACTULOSE SYRUP 20 GM/30 ML UDCUP PO SCH ×3 (05:27→23:13)
[2020-11-12 06:59] LABS: HEMATOCRIT 30.7 % (37.9-51.0); HEMOGLOBIN 10.5 g/dL (13.5-17.0); MEAN CORPUSCULAR HEMOGLOBIN 36.4 pg (27.0-33.4); MEAN CORPUSCULAR HGB CONC 34.2 g/dL (32.0-36.0); MEAN CORPUSCULAR VOLUME 106 fl (80-97); RED BLOOD COUNT 2.89 10^6/uL (4.35-5.55); RED CELL DISTRIBUTION WIDTH 14.8 % (11.5-14.0); WHITE BLOOD COUNT 3.9 10^3/uL (4.0-10.5)
[2020-11-12 07:00] LABS: INTERNATIONAL RATION (INR) 2.53; PROTHROMBIN TIME 27.2 SEC (11.4-15.4)
[2020-11-12 07:02] LABS: ALKALINE PHOSPHATASE 158 U/L (38-126); ASPARTATE AMINO TRANSFERASE 133 U/L (17-59); BILIRUBIN,DIRECT 1.2 mg/dL (0.0-0.4); BILIRUBIN,TOTAL 3.3 mg/dL (0.2-1.3); BLOOD UREA NITROGEN 22 mg/dL (7-20); CALCIUM 7.5 mg/dL (8.4-10.2); GLUCOSE 85 mg/dL (75-110); POTASSIUM 3.8 mmol/L (3.6-5.0); TOTAL PROTEIN 6.2 g/dL (6.3-8.2)
[2020-11-12 07:07] LABS: CARBON DIOXIDE 25 mmol/L (22-30); CHLORIDE 111 mmol/L (98-107)
[2020-11-12 07:15] LABS: ANION GAP 1 (5-19)
[2020-11-12 08:11] LABS: PLATELET COUNT 43 10^3/uL (150-450)
[2020-11-12] MEDS: THIAMINE HCL 100 MG TABLET PO SCH (11:04)
[2020-11-12] MEDS: CYANOCOBALAMIN (VITAMIN B-12) INJ 1000 MCG/1 ML VIAL IM SCH (11:04)
[2020-11-12] MEDS: FERROUS SULFATE 325 MG TABLET PO SCH (11:04)
[2020-11-12] MEDS: FUROSEMIDE 40 MG TABLET PO SCH (11:04)
[2020-11-12] MEDS: FOLIC ACID 1 MG TABLET PO SCH (11:04)
[2020-11-12] MEDS: SPIRONOLACTONE 25 MG TABLET PO SCH (11:04)
[2020-11-12] MEDS: RIFAXIMIN 550 MG TABLET PO SCH ×2 (11:05→18:26)
[2020-11-12] MEDS: CEFTRIAXONE SODIUM 1,000 MG in DEXTROSE 5%-WATER 50 ML IV SCH (11:07)
[2020-11-12] MEDS: MULTIVITS W-MIN/IRON SOLN 60 ML PO SCH (11:31)
--- NOTE | 2020-11-12 11:54 | PDOC PROGRESS REPORT ---
Subjective Date:: 11/12/20 Subjective:: As per attending physician's note CRISTINA BROWNE is a 60 year old male The patient is suffering from alcoholic liver cirrhosis with ascites. He had abdominal paracentesis on 22 October, 4 L of fluid was removed. CT scan of the abdomen and pelvis couple days later revealed cirrhosis with ascites and splenomegaly, no other significant abnormality. It is somewhat unclear whether the patient quit drinking or not. He lives alone but he has some friend who is visiting him time to time. Today he was found in his apartment being confused and the apartment was in a disarray. He was brought to the emergency department. After first dose of lactulose he is alert now. He is still s omewhat confused but cooperative and pleasant. He is oriented to himself, partially oriented to time place and situation. He denies any pain and he does not appear to be in any discomfort. 11/10/2019. No acute events overnight, patient resting in bed no apparent distress, alert and oriented x2, stating that he has a rough night, does not elaborate, denies any auditory visual hallucinations, denies any chest pain, nausea, vomiting, diarrhea. 11/11/2020. No acute events overnight. Stating that he had a better night compared to yesterday, alert and oriented x3 in no apparent distress, denies any auditory or visual hallucinations, complaining of posterior headache, does not remember how he ended up to the hospital or that he had a fall, stating that he lives in a trailer with another friend who is currently out of state in [place], does have some family in [place] but he lives with another friend. Patient denies any fever, chills, nausea, vomiting, diarrhea, constipation or any urinary symptoms. 11/12/2020. No acute events noted, patient alert and oriented, stating that he could not get much sleep, otherwise denies any fever, chills, nausea, vomiting, still complaining of headache, stating that he has been able to talk to his extremity in [place] to try to find out what happened prior to the fall, patient is stating that he was told by his roommate that he found him on the floor covered in his urine, patient is still have left hand hand drop. Reason For Visit: HEPATIC ENCEPHALOPATHY,LIVER CIRRHOSIS WITH Physical Exam Vital Signs: Temp Pulse Resp BP Pulse Ox 97.6 F 63 19 110/58 L 97 11/12/20 08:35 11/12/20 08:00 11/12/20 08:00 11/12/20 08:00 11/12/20 08:00 Intake & Output 11/11/20 11/12/20 11/13/20 06:59 06:59 06:59 Intake Total 1620 Output Total 275 975 Balance -275 645 Weight 94.5 kg 94 kg General appearance: PRESENT: no acute distress, obese, well-developed, well- nourished Head exam: PRESENT: atraumatic, normocephalic Neck exam: ABSENT: carotid bruit, JVD, lymphadenopathy, thyromegaly Respiratory exam: PRESENT: clear to auscultation andree. ABSENT: rales, rhonchi, wheezes Cardiovascular exam: PRESENT: RRR. ABSENT: diastolic murmur, rubs, systolic murmur GI/Abdominal exam: PRESENT: ascites, distended, normal bowel sounds, soft, tenderness. ABSENT: guarding, mass, organolmegaly, rebound Extremities exam: PRESENT: pedal edema, +2 edema Neurological exam: PRESENT: alert, awake, oriented to person, oriented to place, CN II-XII grossly intact, motor sensory deficit - Left wrist drop, dull sensation to touch. Results Laboratory Results: 11/12/20 05:59 11/12/20 05:59 11/11/20 11/11/20 11/11/20 11:50 11:50 11:50 WBC 5.4 RBC 2.57 L Hgb 9.6 L Hct 27.3 L MCV 106 H MCH 37.5 H MCHC 35.3 RDW 14.9 H Plt Count 45 L Sodium Potassium Chloride Carbon Dioxide Anion Gap BUN Creatinine Est GFR ( Amer) Glucose Calcium Total Bilirubin AST Alkaline Phosphatase Ammonia 70.5 H Total Protein Albumin Blood Type B POSITIVE 11/12/20 11/12/20 11/12/20 05:59 05:59 05:59 WBC 3.9 L RBC 2.89 L Hgb 10.5 L Hct 30.7 L MCV 106 H MCH 36.4 H MCHC 34.2 RDW 14.8 H Plt Count 43 L Sodium 136.8 L Potassium 3.8 Chloride 111 H Carbon Dioxide 25 Anion Gap 1 L BUN 22 H Creatinine 0.67 Est GFR ( Amer) > 60 Glucose 85 Calcium 7.5 L Total Bilirubin 3.3 H AST 133 H Alkaline Phosphatase 158 H Ammonia 61.5 H Total Protein 6.2 L Albumin 2.0 L Blood Type 11/11/20 11:50 Creatine Kinase 584 H Impressions: Chest X-Ray 11/09/20 17:48 IMPRESSION: NO ACUTE RADIOGRAPHIC FINDING IN THE CHEST. Head CT 11/09/20 20:04 IMPRESSION: 1. No acute intracranial abnormalities. 2. Mild left maxillary sinus disease. 3. Suggestion of small scalp hematoma left vertex. TECHNICAL DOCUMENTATION: Quality ID # 436: Final reports with documentation of one or more dose reduction techniques (e.g., Automated exposure control, adjustment of the mA and/or kV according to patient size, use of iterative reconstruction technique) copyright 2011 [employer]- All Rights Reserved Hand X-Ray 11/11/20 13:34 IMPRESSION: No acute osseous abnormality of the left hand. Assessment and Plan - Diagnosis (1) Acute hepatic encephalopathy Is this a current diagnosis for this admission?: Yes Plan: Seems to be back at baseline, patient alert and oriented x3, cooperative and pleasant. Most likely due to hepatic encephalopathy Presented with elevated ammonia level. Continue lactulose, titrate to have 3 soft bowel movements 24 hours, continue rifaximin. Continue Lasix and spironolactone, monitor vitals, fall precautions. (2) Alcohol abuse Is this a current diagnosis for this admission?: Yes Plan: Does not appear to be acutely withdrawing. Denies any visual or auditory hallucination. Denies any formication. Vitals stable. Continue fall, seizure and DT precautions. As needed benzodiazepines, folic acid, thiamine, B12 and multivitamins. (3) Alcoholic cirrhosis of liver Qualifiers: Ascites presence: with ascites Qualified Code(s): K70.31 - Alcoholic cirrhosis of liver with ascites Is this a current diagnosis for this admission?: Yes Plan: Due to alcoholic cirrhosis. Presented with tense ascites with epigastric abdominal pain on examination. Bilateral lower extremity petechiae, thrombocytopenia and elevated PT/INR. Last paracentesis every second, 4 L removed. Continue hepatic diet, fall precaution, monitor for bleeding. Lasix, spironolactone, rifaximin, lactulose. It is unclear whether he had EGD or not. He said he sees a liver specialist but he could not specify where is the specialist and who is a specialist. I am not quite convinced that he sees a live in [facility]. (4) Macrocytic anemia Is this a current diagnosis for this admission?: Yes Plan: Likely due to EtOH abuse and cirrhosis. Continue ferrous sulfate, continue multivitamins. (5) Thrombocytopenia Is this a current diagnosis for this admission?: Yes Plan: Stable. Most likely due to underlying cirrhosis. Monitor for any sign of bleeding. Fall precautions. Supportive transfusions. (6) Wrist drop, left wrist Is this a current diagnosis for this admission?: Yes Plan: Likely traumatic. X-ray left hand no acute abnormality. Patient also on the floor by his roommate covered in urine, sure how he fell and how long he was in the floor. Patient does not recall if he had any trauma due to the fall prior to admission. Denies left upper extremity pain or swelling. No sign of trauma or fracture on physical examination. We will monitor for right now, ED consulted. (7) Ascites Qualifiers: Ascites type: due to alcoholic cirrhosis Qualified Code(s): K70.31 - Alcoholic cirrhosis of liver with ascites Is this a current diagnosis for this admission?: Yes Plan: Abdominal distention, fluid wave on physical examination and epigastric abdominal pain. Last paracentesis 4 months ago. We will consult radiology for therapeutic and diagnostic paracentesis. Continue hepatic diet, continue empiric IV antibiotics for possible SBP. - Time Time Spent with patient: 35 or more minutes Anticipated Discharge Disposition: Home with Home Health Anticipated Discharge Timeframe: within 72 hours
[2020-11-13] MEDS: LACTULOSE SYRUP 20 GM/30 ML UDCUP PO SCH ×3 (02:47→18:28)
[2020-11-13 05:36] LABS: HEMATOCRIT 28.5 % (37.9-51.0); HEMOGLOBIN 9.8 g/dL (13.5-17.0); MEAN CORPUSCULAR HEMOGLOBIN 36.6 pg (27.0-33.4); MEAN CORPUSCULAR HGB CONC 34.5 g/dL (32.0-36.0); MEAN CORPUSCULAR VOLUME 106 fl (80-97); RED BLOOD COUNT 2.69 10^6/uL (4.35-5.55); RED CELL DISTRIBUTION WIDTH 14.9 % (11.5-14.0); WHITE BLOOD COUNT 5.6 10^3/uL (4.0-10.5)
[2020-11-13 05:42] LABS: INTERNATIONAL RATION (INR) 2.54; PROTHROMBIN TIME 27.3 SEC (11.4-15.4)
[2020-11-13 06:11] LABS: ALKALINE PHOSPHATASE 169 U/L (38-126); ASPARTATE AMINO TRANSFERASE 113 U/L (17-59); BILIRUBIN,DIRECT 1.1 mg/dL (0.0-0.4); BILIRUBIN,TOTAL 3.1 mg/dL (0.2-1.3); BLOOD UREA NITROGEN 20 mg/dL (7-20); CALCIUM 7.5 mg/dL (8.4-10.2); CARBON DIOXIDE 24 mmol/L (22-30); CHLORIDE 111 mmol/L (98-107); GLUCOSE 92 mg/dL (75-110); POTASSIUM 4.1 mmol/L (3.6-5.0); TOTAL PROTEIN 6.1 g/dL (6.3-8.2)
[2020-11-13 06:12] LABS: PLATELET COUNT 40 10^3/uL (150-450)
[2020-11-13 06:14] LABS: ANION GAP 2 (5-19)
--- NOTE | 2020-11-13 08:05 | RADIOLOGY REPORT (SQ) ---
EXAM DESCRIPTION: U/S ABDOMEN LTD W/DOPPLER IMAGES COMPLETED DATE/TIME: 11/13/2020 6:57 am REASON FOR STUDY: abnormal Echo. r/o hepatic vein thrombosis COMPARISON: CT dated 10/24/2020. Report of an echocardiogram dated 11/10/2020. TECHNIQUE: Dynamic and static grayscale images acquired of the right upper quadrant and recorded on PACS. Additional selected color Doppler and spectral images recorded. LIMITATIONS: Study limited due to acoustical interference from fat or from air in the bowel. FINDINGS: PANCREAS: Obscured. LIVER: 13.6 cm. Heterogenous nodular echotexture. No focal lesions. LIVER VASCULATURE: Patent main portal vein. No echogenic thrombus visualized. Normal directional fl ow of the main portal vein and hepatic veins. GALLBLADDER: No stones. Generalized diffuse wall thickening. No pericholecystic fluid. ULTRASOUND-DETECTED WAYNE'S SIGN: Negative. INTRAHEPATIC DUCTS AND COMMON DUCT: CBD and intrahepatic ducts normal caliber. No filling defects. INFERIOR VENA CAVA: Normal flow. AORTA: Incompletely visualized. RIGHT KIDNEY: Normal size. Normal echogenicity. No solid or suspicious masses. No hydronephrosis. No calcifications. PERITONEAL CAVITY AND RIGHT PLEURAL SPACE: Large amount of ascites. OTHER: No other significant finding. IMPRESSION: 1. HETEROGENOUS NODULAR ECHOTEXTURE OF THE LIVER CONSISTENT WITH CIRRHOSIS. NO FOCAL LESIONS. PATEN T MAIN PORTAL VEIN WITH NO THROMBUS VISUALIZED. 2. LARGE AMOUNT OF ASCITES. TECHNICAL DOCUMENTATION: JOB ID: [id number] 2010 [employer]- All Rights Reserved Reading location - IP/workstation name: [email or web address]
[2020-11-13] MEDS: FOLIC ACID 1 MG TABLET PO SCH (10:21)
[2020-11-13] MEDS: SPIRONOLACTONE 25 MG TABLET PO SCH (10:21)
[2020-11-13] MEDS: FUROSEMIDE 40 MG TABLET PO SCH (10:21)
[2020-11-13] MEDS: THIAMINE HCL 100 MG TABLET PO SCH (10:21)
[2020-11-13] MEDS: FERROUS SULFATE 325 MG TABLET PO SCH (10:21)
[2020-11-13] MEDS: MULTIVITS W-MIN/IRON SOLN 60 ML PO SCH (10:22)
[2020-11-13] MEDS: RIFAXIMIN 550 MG TABLET PO SCH ×2 (12:08→18:28)
[2020-11-13] MEDS: MIDODRINE HCL 5 MG TABLET PO SCH ×2 (12:09→18:28)
[2020-11-13] MEDS: ALBUMIN HUMAN 12.5 GM/50 ML RTUINJ IV SCH ×4 (12:10→13:50)
[2020-11-13] MEDS: CYANOCOBALAMIN (VITAMIN B-12) INJ 1000 MCG/1 ML VIAL IM SCH (12:10)
[2020-11-13] MEDS ORDERED: TEMAZEPAM 15 MG CAPSULE PO PRN (13:07)
--- NOTE | 2020-11-13 13:13 | PDOC PROGRESS REPORT ---
Subjective Date:: 11/13/20 Subjective:: As per attending physician's note CRISTINA BROWNE is a 60 year old male The patient is suffering from alcoholic liver cirrhosis with ascites. He had abdominal paracentesis on 22 October, 4 L of fluid was removed. CT scan of the abdomen and pelvis couple days later revealed cirrhosis with ascites and splenomegaly, no other significant abnormality. It is somewhat unclear whether the patient quit drinking or not. He lives alone but he has some friend who is visiting him time to time. Today he was found in his apartment being confused and the apartment was in a disarray. He was brought to the emergency department. After first dose of lactulose he is alert now. He is still s omewhat confused but cooperative and pleasant. He is oriented to himself, partially oriented to time place and situation. He denies any pain and he does not appear to be in any discomfort. 11/10/2019. No acute events overnight, patient resting in bed no apparent distress, alert and oriented x2, stating that he has a rough night, does not elaborate, denies any auditory visual hallucinations, denies any chest pain, nausea, vomiting, diarrhea. 11/11/2020. No acute events overnight. Stating that he had a better night compared to yesterday, alert and oriented x3 in no apparent distress, denies any auditory or visual hallucinations, complaining of posterior headache, does not remember how he ended up to the hospital or that he had a fall, stating that he lives in a trailer with another friend who is currently out of state in [place], does have some family in [place] but he lives with another friend. Patient denies any fever, chills, nausea, vomiting, diarrhea, constipation or any urinary symptoms. 11/12/2020. No acute events noted, patient alert and oriented, stating that he could not get much sleep, otherwise denies any fever, chills, nausea, vomiting, still complaining of headache, stating that he has been able to talk to his extremity in [place] to try to find out what happened prior to the fall, patient is stating that he was told by his roommate that he found him on the floor covered in his urine, patient is still have left hand hand drop. 11/13/2020. No acute events overnight, complaining of having a restless night otherwise denies any fever, chills, nausea, vomiting. Headache is improving. P.o. tolerant, having normal bowel and bladder movements. Was scheduled for paracentesis however it was delayed as patient has elevated INR. Reason For Visit: HEPATIC ENCEPHALOPATHY,LIVER CIRRHOSIS WITH Physical Exam Vital Signs: Temp Pulse Resp BP Pulse Ox 97.6 F 67 16 93/44 L 94 11/13/20 10:00 11/13/20 08:14 11/13/20 08:14 11/13/20 08:14 11/13/20 08:14 Intake & Output 11/12/20 11/13/20 11/14/20 06:59 06:59 06:59 Intake Total 1620 720 25 Output Total 975 800 Balance 645 -80 25 Weight 94 kg 95 kg General appearance: PRESENT: no acute distress, well-developed, well-nourished Head exam: PRESENT: atraumatic, normocephalic Respiratory exam: PRESENT: clear to auscultation andree. ABSENT: rales, rhonchi, wheezes Cardiovascular exam: PRESENT: RRR. ABSENT: diastolic murmur, rubs, systolic murmur GI/Abdominal exam: PRESENT: ascites, normal bowel sounds, soft, tenderness, other - Fluid wave. ABSENT: distended, guarding, mass, organolmegaly, rebound Extremities exam: PRESENT: +2 edema Neurological exam: PRESENT: alert, awake, oriented to person, oriented to place, CN II-XII grossly intact, motor sensory deficit - Left wrist drop Results Laboratory Results: 11/13/20 05:16 11/13/20 05:16 11/13/20 11/13/20 05:16 05:16 WBC 5.6 RBC 2.69 L Hgb 9.8 L Hct 28.5 L MCV 106 H MCH 36.6 H MCHC 34.5 RDW 14.9 H Plt Count 40 L Sodium 136.5 L Potassium 4.1 Chloride 111 H Carbon Dioxide 24 Anion Gap 2 L BUN 20 Creatinine 0.62 Est GFR ( Amer) > 60 Glucose 92 Calcium 7.5 L Magnesium 1.7 Total Bilirubin 3.1 H AST 113 H Alkaline Phosphatase 169 H Total Protein 6.1 L Albumin 2.0 L 11/11/20 11:50 Creatine Kinase 584 H Impressions: Chest X-Ray 11/09/20 17:48 IMPRESSION: NO ACUTE RADIOGRAPHIC FINDING IN THE CHEST. Head CT 11/09/20 20:04 IMPRESSION: 1. No acute intracranial abnormalities. 2. Mild left maxillary sinus disease. 3. Suggestion of small scalp hematoma left vertex. TECHNICAL DOCUMENTATION: Quality ID # 436: Final reports with documentation of one or more dose reduction techniques (e.g., Automated exposure control, adjustment of the mA and/or kV according to patient size, use of iterative reconstruction technique) copyright 2011 [employer]- All Rights Reserved Hand X-Ray 11/11/20 13:34 IMPRESSION: No acute osseous abnormality of the left hand. Abdomen Ultrasound 11/13/20 07:45 IMPRESSION: 1. HETEROGENOUS NODULAR ECHOTEXTURE OF THE LIVER CONSISTENT WITH CIRRHOSIS. NO FOCAL LESIONS. PATENT MAIN PORTAL VEIN WITH NO THROMBUS VISUALIZED. 2. LARGE AMOUNT OF ASCITES. Assessment and Plan - Diagnosis (1) Acute hepatic encephalopathy Is this a current diagnosis for this admission?: Yes Plan: Seems to be back at baseline, patient alert and oriented x3, cooperative and pleasant. Most likely due to hepatic encephalopathy Presented with elevated ammonia level. Continue lactulose, titrate to have 3 soft bowel movements 24 hours, continue rifaximin. Continue Lasix and spironolactone, monitor vitals, fall precautions. (2) Ascites Qualifiers: Ascites type: due to alcoholic cirrhosis Qualified Code(s): K70.31 - Alcoho lic cirrhosis of liver with ascites Is this a current diagnosis for this admission?: Yes Plan: Abdominal distention, fluid wave on physical examination and epigastric abdominal pain. Last paracentesis 4 months ago. Pending therapeutic and diagnostic paracentesis. Paracentesis delayed due to elevated INR. Already received vitamin K on admission, will give FFP and have n.p.o. after midnight for possible paracentesis tomorrow. Continue hepatic diet, continue empiric IV antibiotics for possible SBP. (3) Alcohol abuse Is this a current diagnosis for this admission?: Yes Plan: Does not appear to be acutely withdrawing. Denies any visual or auditory hallucination. Denies any formication. Vitals stable. Continue fall, seizure and DT precautions. As needed benzodiazepines, folic acid, thiamine, B12 and multivitamins. (4) Alcoholic cirrhosis of liver Qualifiers: Ascites presence: with ascites Qualified Code(s): K70.31 - Alcoholic cirrhosis of liver with ascites Is this a current diagnosis for this admission?: Yes Plan: Due to alcoholic cirrhosis. Presented with tense ascites with epigastric abdominal pain on examination. Bilateral lower extremity petechiae, thrombocytopenia and elevated PT/INR. Last paracentesis every second, 4 L removed. Continue hepatic diet, fall precaution, monitor for bleeding. Lasix, spironolactone, rifaximin, lactulose. It is unclear whether he had EGD or not. He said he sees a liver specialist but he could not specify where is the specialist and who is a specialist. I am not quite convinced that he sees a lottery office manager. (5) Macrocytic anemia Is this a current diagnosis for this admission?: Yes Plan: Likely due to EtOH abuse and cirrhosis. Continue ferrous sulfate, continue multivitamins. (6) Thrombocytopenia Is this a current diagnosis for this admission?: Yes Plan: Stable. Most likely due to underlying cirrhosis. Monitor for any sign of bleeding. Fall precautions. Supportive transfusions. (7) Wrist drop, left wrist Is this a current diagnosis for this admission?: Yes Plan: Likely traumatic. X-ray left hand no acute abnormality. Patient also on the floor by his roommate covered in urine, sure how he fell and how long he was in the floor. Patient does not recall if he had any trauma due to the fall prior to admission. Denies left upper extremity pain or swelling. No sign of trauma or fracture on physical examination. We will monitor for right now, ED consulted. (8) Abnormal echocardiogram Is this a current diagnosis for this admission?: Yes Plan: On admission 2D echo showed mobile, long, thin echodense strands in the hepatic vein of unclear etiology. Suspicion of possible portal vein thrombosis were raised and follow-up abdominal ultrasound was negative for any portal vein thrombosis. Obtain GLENDA if indicated. - Time Time Spent with patient: 35 or more minutes Anticipated Discharge Disposition: Home with Home Health Anticipated Discharge Timeframe: within 72 hours
[2020-11-13] MEDS: CEFTRIAXONE SODIUM 1,000 MG in DEXTROSE 5%-WATER 50 ML IV SCH (14:22)
[2020-11-14] MEDS: LACTULOSE SYRUP 20 GM/30 ML UDCUP PO SCH ×3 (03:16→18:19)
[2020-11-14] MEDS ORDERED: NORMAL SALINE 250 ML IV PRN ×2 (03:26)
[2020-11-14 04:47] LABS: INTERNATIONAL RATION (INR) 2.68; PROTHROMBIN TIME 28.4 SEC (11.4-15.4)
[2020-11-14 08:33] LABS: INTERNATIONAL RATION (INR) 2.35; PROTHROMBIN TIME 25.7 SEC (11.4-15.4)
[2020-11-14] MEDS: SPIRONOLACTONE 25 MG TABLET PO SCH (11:34)
[2020-11-14] MEDS: MIDODRINE HCL 5 MG TABLET PO SCH ×2 (11:35→18:20)
[2020-11-14] MEDS: FUROSEMIDE 40 MG TABLET PO SCH (11:35)
[2020-11-14] MEDS: FOLIC ACID 1 MG TABLET PO SCH (11:35)
[2020-11-14] MEDS: RIFAXIMIN 550 MG TABLET PO SCH ×2 (11:35→18:20)
[2020-11-14] MEDS: FERROUS SULFATE 325 MG TABLET PO SCH (11:35)
[2020-11-14] MEDS: THIAMINE HCL 100 MG TABLET PO SCH (11:36)
[2020-11-14] MEDS: CYANOCOBALAMIN (VITAMIN B-12) INJ 1000 MCG/1 ML VIAL IM SCH (11:36)
[2020-11-14] MEDS: MULTIVITS W-MIN/IRON SOLN 60 ML PO SCH (11:36)
[2020-11-14] MEDS: CEFTRIAXONE SODIUM 1,000 MG in DEXTROSE 5%-WATER 50 ML IV SCH (11:37)
[2020-11-14] MEDS ORDERED: PROMETHAZINE HCL 25 MG TABLET PO PRN (15:00)
--- NOTE | 2020-11-14 18:15 | PDOC PROGRESS REPORT ---
Subjective Subjective:: Per Previous Physician: "As per attending physician's note CRISTINA BROWNE is a 60 year old male The patient is suffering from alcoholic liver cirrhosis with ascites. He had abdominal paracentesis on 22 October, 4 L of fluid was removed. CT scan of the abdomen and pelvis couple days later revealed cirrhosis with ascites and splenomegaly, no other significant abnormality. It is somewhat unclear whether the patient quit drinking or not. He lives alone but he has some friend who is visiting him time to time. Today he was found in his apartment being confused and the apartment was in a disarray. He was brought to the emergency department. After first dose of lactulose he is alert now. He is still somewhat confused but cooperative and pleasant. He is oriented to himself, partially oriented to time place and situation. He denies any pain and he does not appear to be in any discomfort. 11/10/2019. No acute events overnight, patient resting in bed no apparent distress, alert and oriented x2, stating that he has a rough night, does not elaborate, denies any auditory visual hallucinations, denies any chest pain, nausea, vomiting, diarrhea. 11/11/2020. No acute events overnight. Stating that he had a better night compared to yesterday, alert and oriented x3 in no apparent distress, denies any auditory or visual hallucinations, complaining of posterior headache, does not remember how he ended up to the hospital or that he had a fall, stating that he lives in a trailer with another friend who is currently out of state in [place], does have some family in [place] but he lives with another friend. Patient denies any fever, chills, nausea, vomiting, diarrhea, constipation or any urinary symptoms. 11/12/2020. No acute events noted, patient alert and oriented, stating that he could not get much sleep, otherwise denies any fever, chills, nausea, vomiting, still complaining of headache, stating that he has been able to talk to his extremity in [place] to try to find out what happened prior to the fall, patient is stating that he was told by his roommate that he found him on the floor cover ed in his urine, patient is still have left hand hand drop. 11/13/2020. No acute events overnight, complaining of having a restless night otherwise denies any fever, chills, nausea, vomiting. Headache is improving. P.o. tolerant, having normal bowel and bladder movements. Was scheduled for paracentesis however it was delayed as patient has elevated INR." 11/14 Patient was given FFP today anticipation of paracentesis however plasma was not infused in time and INR was not checked in time to have paracentesis today. Check INR in a.m. and hopefully have paracentesis on 11/15. Patient's abdomen is quite distended and he overall has a quite poor long-term prognosis. INR is elevated and ammonia is lower. PT to evaluate for left wrist drop. Reportedly, patient is homeless. Aldactone/Lasix can be uptitrated once per week to account for delayed metabolism and effect of medications on cirrhotics. Reason For Visit: HEPATIC ENCEPHALOPATHY,LIVER CIRRHOSIS WITH Physical Exam Vital Signs: Temp Pulse Resp BP Pulse Ox 97.6 F 69 20 153/80 H 99 11/14/20 16:46 11/14/20 16:46 11/14/20 08:45 11/14/20 16:46 11/14/20 16:46 Intake & Output 11/13/20 11/14/20 11/15/20 06:59 06:59 06:59 Intake Total 720 1094 1135 Output Total 800 200 Balance -80 894 1135 Weight 95 kg 93.1 kg Exam: General appearance: PRESENT: no acute distress, chronically ill-appearing white male Head exam: PRESENT: atraumatic, normocephalic Eye exam: PRESENT: conjunctiva pink. ABSENT: scleral icterus Mouth exam: PRESENT: moist Respiratory exam: PRESENT: clear to auscultation andree. ABSENT: rales, rhonchi, wheezes Cardiovascular exam: PRESENT: RRR. ABSENT: diastolic murmur, rubs, systolic murmur GI/Abdominal exam: PRESENT: normal bowel sounds, large distended abdomen mildly tense ABSENT: guarding, mass, organolmegaly, rebound, tenderness Neurological exam: PRESENT: alert, awake, oriented to person, oriented to place, oriented to time, oriented to situation Psychiatric exam: PRESENT: appropriate affect, normal mood Skin exam: PRESENT: dry, intact, warm Results Laboratory Results: 11/13/20 05:16 11/13/20 05:16 11/11/20 11/14/20 11/14/20 11:50 04:27 12:47 Ammonia 45.4 H Blood Type B POSITIVE B POSITIVE 11/09/20 17:16 Blood Blood Culture - Final NO GROWTH IN 5 DAYS 11/11/20 11:50 Creatine Kinase 584 H Impressions: Chest X-Ray 11/09/20 17:48 IMPRESSION: NO ACUTE RADIOGRAPHIC FINDING IN THE CHEST. Head CT 11/09/20 20:04 IMPRESSION: 1. No acute intracranial abnormalities. 2. Mild left maxillary sinus disease. 3. Suggestion of small scalp hematoma left vertex. TECHNICAL DOCUMENTATION: Quality ID # 436: Final reports with documentation of one or more dose reduction techniques (e.g., Automated exposure control, adjustment of the mA and/or kV according to patient size, use of iterative reconstruction technique) copyright 2011 [employer]- All Rights Reserved Hand X-Ray 11/11/20 13:34 IMPRESSION: No acute osseous abnormality of the left hand. Abdomen Ultrasound 11/13/20 07:45 IMPRESSION: 1. HETEROGENOUS NODULAR ECHOTEXTURE OF THE LIVER CONSISTENT WITH CIRRHOSIS. NO FOCAL LESIONS. PATENT MAIN PORTAL VEIN WITH NO THROMBUS VISUALIZED. 2. LARGE AMOUNT OF ASCITES. Assessment and Plan - Diagnosis (1) Abnormal echocardiogram Is this a current diagnosis for this admission?: Yes (2) Acute hepatic encephalopathy Is this a current diagnosis for this admission?: Yes (3) Alcohol abuse Is this a current diagnosis for this admission?: Yes (4) Alcoholic cirrhosis of liver Qualifiers: Ascites presence: with ascites Qualified Code(s): K70.31 - Alcoholic cirrhosis of liver with ascites Is this a current diagnosis for this admission?: Yes (5) Ascites Qualifiers: Ascites type: due to alcoholic cirrhosis Qualified Code(s): K70.31 - Alcoholic cirrhosis of liver with ascites Is this a current diagnosis for this admission?: Yes (6) Chronic liver disease and cirrhosis Is this a current diagnosis for this admission?: Yes (7) Hyperammonemia Is this a current diagnosis for this admission?: Yes (8) Macrocytic anemia Is this a current diagnosis for this admission?: Yes (9) Thrombocytopenia Is this a current diagnosis for this admission?: Yes (10) Wrist drop, left wrist Is this a current diagnosis for this admission?: Yes - Plan Summary Summary: (1) Acute hepatic encephalopathy Is this a current diagnosis for this admission?: Yes Plan: Per Previous Physician: "Seems to be back at baseline, patient alert and oriented x3, cooperative and pleasant. Most likely due to hepatic encephalopathy Presented with elevated ammonia level. Continue lactulose, titrate to have 3 soft bowel movements 24 hours, continue rifaximin. Continue Lasix and spironolactone, monitor vitals, fall precautions." Improved, continue medications (2) Ascites Qualifiers: Ascites type: due to alcoholic cirrhosis Qualified Code(s): K70.31 - Al coholic cirrhosis of liver with ascites Is this a current diagnosis for this admission?: Yes Plan: Per Previous Physician: "Abdominal distention, fluid wave on physical examination and epigastric abdominal pain. Last paracentesis 4 months ago. Pending therapeutic and diagnostic paracentesis. Paracentesis delayed due to elevated INR. Already received vitamin K on admission, will give FFP and have n.p.o. after midnight for possible paracentesis tomorrow. Continue hepatic diet, continue empiric IV antibiotics for possible SBP." Paracentesis delayed due to persistently elevated INR and delayed administration of FFP, trend INR Reattempt paracentesis 11/15 (3) Alcohol abuse Is this a current diagnosis for this admission?: Yes Plan: Per Previous Physician: "Does not appear to be acutely withdrawing. Denies any visual or auditory hallucination. Denies any formication. Vitals stable. Continue fall, seizure and DT precautions. As needed benzodiazepines, folic acid, thiamine, B12 and multivitamins." Counseled on cessation (4) Alcoholic cirrhosis of liver Qualifiers: Ascites presence: with ascites Qualified Code(s): K70.31 - Alcoholic cirrhosis of liver with ascites Is this a current diagnosis for this admission?: Yes Plan: Per Previous Physician: "Due to alcoholic cirrhosis. Presented with tense ascites with epigastric abdominal pain on examination. Bilateral lower extremity petechiae, thrombocytopenia and elevated PT/INR. Last paracentesis every second, 4 L removed. Continue hepatic diet, fall precaution, monitor for bleeding. Lasix, spironolactone, rifaximin, lactulose. It is unclear whether he had EGD or not. He said he sees a liver specialist but he could not specify where is the specialist and who is a specialist. I am not quite convinced that he sees a button decorating machine operator. " Very poor long-term prognosis (5) Macrocytic anemia Is this a current diagnosis for this admission?: Yes Plan: Per Previous Physician: "Likely due to EtOH abuse and cirrhosis. Continue ferrous sulfate, continue multivitamins." (6) Thrombocytopenia Is this a current diagnosis for this admission?: Yes Plan: Per Previous Physician: "Stable. Most likely due to underlying cirrhosis. Monitor for any sign of bleeding. Fall precautions. Supportive transfusions." (7) Wrist drop, left wrist Is this a current diagnosis for this admission?: Yes Plan: Per Previous Physician: "Likely traumatic. X-ray left hand no acute abnormality. Patient also on the floor by his roommate covered in urine, sure how he fell and how long he was in the floor. Patient does not recall if he had any trauma due to the fall prior to admission. Denies left upper extremity pain or swelling. No sign of trauma or fracture on physical examination. We will monitor for right now, ED consulted." PT consulted (8) Abnormal echocardiogram Is this a current diagnosis for this admission?: Yes Plan: Per Previous Physician: "On admission 2D echo showed mobile, long, thin echodense strands in the hepatic vein of unclear etiology. Suspicion of possible portal vein thrombosis were raised and follow-up abdominal ultrasound was negative for any portal vein thrombosis. Obtain GLENDA if indicated." - Time Time Spent with patient: 25-34 minutes Smoking Cessation Education: 3 to 10 minutes Medications reviewed and adjusted accordingly: Yes Anticipated Discharge Disposition: Home, Self Care Anticipated Discharge Timeframe: within 72 hours - Inpatient Certification Based on my medical assessment, after consideration of the patient's comorbidities, presenting symptoms, or acuity I expect that the services needed warrant INPATIENT care.: Yes I certify that my determination is in accordance with my understanding of Medicare's requirements for reasonable and necessary INPATIENT services [42 CFR 412.3e].: Yes Medical Necessity: Significant Comorbidiites Make Outpatient Treatment Too Risky, Need Close Monitoring Due to Risk of Patient Decompensation, Risk of Complication if Not Cared For in Hospital, Risk of Diagnosis Which Will Require Inpatient Eval/Care/Monitoring
[2020-11-14 20:21] LABS: PROTHROMBIN TIME 23.6 SEC (11.4-15.4)
[2020-11-15] MEDS: LACTULOSE SYRUP 20 GM/30 ML UDCUP PO SCH ×3 (01:29→17:50)
[2020-11-15 07:29] LABS: INTERNATIONAL RATION (INR) 2.08; PROTHROMBIN TIME 23.4 SEC (11.4-15.4)
[2020-11-15 07:32] LABS: ABSOLUTE EOSINOPHILS # (AUTO) 0.2 10^3/uL (0.0-0.6); ABSOLUTE LYMPHOCYTES (AUTO) 1.2 10^3/uL (0.5-4.7); ABSOLUTE MONOCYTES (AUTO) 0.8 10^3/uL (0.1-1.4); BASOPHILS % (AUTO) 0.9 % (0-2); EOSINOPHILS % (AUTO) 3.6 % (0-6); HEMATOCRIT 29.1 % (37.9-51.0); HEMOGLOBIN 10.1 g/dL (13.5-17.0); LYMPHOCYTES % (AUTO) 23.3 % (13-45); MEAN CORPUSCULAR HEMOGLOBIN 37.6 pg (27.0-33.4); MEAN CORPUSCULAR HGB CONC 34.8 g/dL (32.0-36.0); MEAN CORPUSCULAR VOLUME 108 fl (80-97); MONOCYTES % (AUTO) 14.7 % (3-13); RED CELL DISTRIBUTION WIDTH 15.2 % (11.5-14.0); SEGMENTED NEUTROPHILS % (AUTO) 57.5 % (42-78); TOTAL CELLS COUNTED % (AUTO) 100 %; WHITE BLOOD COUNT 5.2 10^3/uL (4.0-10.5)
[2020-11-15 07:46] LABS: BLOOD UREA NITROGEN 17 mg/dL (7-20); CALCIUM 7.6 mg/dL (8.4-10.2); CHLORIDE 109 mmol/L (98-107); GLUCOSE 79 mg/dL (75-110); POTASSIUM 4.4 mmol/L (3.6-5.0)
[2020-11-15 07:51] LABS: CARBON DIOXIDE 22 mmol/L (22-30)
[2020-11-15 07:52] LABS: ANION GAP 2 (5-19)
[2020-11-15 08:15] LABS: PLATELET COUNT 56 10^3/uL (150-450)
[2020-11-15] MEDS: SPIRONOLACTONE 25 MG TABLET PO SCH (11:22)
[2020-11-15] MEDS: FUROSEMIDE 40 MG TABLET PO SCH (11:23)
[2020-11-15] MEDS: FERROUS SULFATE 325 MG TABLET PO SCH (11:23)
[2020-11-15] MEDS: CEFTRIAXONE SODIUM 1,000 MG in DEXTROSE 5%-WATER 50 ML IV SCH (11:23)
[2020-11-15] MEDS: THIAMINE HCL 100 MG TABLET PO SCH (11:23)
[2020-11-15] MEDS: RIFAXIMIN 550 MG TABLET PO SCH ×2 (11:30→17:55)
[2020-11-15] MEDS: CYANOCOBALAMIN (VITAMIN B-12) INJ 1000 MCG/1 ML VIAL IM SCH (11:31)
[2020-11-15] MEDS: FOLIC ACID 1 MG TABLET PO SCH (11:37)
--- NOTE | 2020-11-15 11:39 | RADIOLOGY REPORT (SQ) ---
EXAM DESCRIPTION: U/S ABD PARACENTESIS IMAGES COMPLETED DATE/TIME: 11/15/2020 10:46 am REASON FOR STUDY: ascites COMPARISON None. LIMITATIONS: None. PROCEDURE: After obtaining informed consent, the patient was brought to the ultrasound suite. The p rocedure was performed with the patient on a gurney. Ultrasound was used to identify a prominent poc ket of ascites in the right lower quadrant. An appropriate access site was selected. The patient wa s prepped and draped in usual sterile fashion. The access site was anesthetized with 8 mL 1% lidoca ine. A [id number] needle was advanced into the fluid. After aspiration of fluid the needle, th e catheter was advanced off the needle into the fluid. A total of 6,000 mL of clear, straw-colored f luid was removed. The patient tolerated the procedure well left the department in satisfactory condit ion. IMPRESSION: Successful ultrasound-guided paracentesis COMMENT: Patient medication list reviewed: Yes- Quality ID# [id number]:Eligible professional attests to doc umenting in the medical record they obtained, updated, or reviewed the patient's current medications. TECHNICAL DOCUMENTATION: JOB ID: [id number] 2010 [employer]- All Rights Reserved Reading location - IP/workstation name: [email or web address]
[2020-11-15 11:56] LABS: FLUID APPEARANCE CLEAR; FLUID COLOR YELLOW; FLUID SOURCE ASCITES; FLUID VISCOSITY LIQUID
[2020-11-15] MEDS: MIDODRINE HCL 5 MG TABLET PO SCH ×2 (15:25→17:55)
--- NOTE | 2020-11-15 16:44 | PDOC DISCHARGE SUMMARY ---
Impression - Admit/DC Date/PCP Admission Date/Primary Care Provider: 11/09/20 21:44 Discharge Date: 11/15/20 - Discharge Diagnosis (1) Abnormal echocardiogram Is this a current diagnosis for this admission?: Yes (2) Acute hepatic encephalopathy Is this a current diagnosis for this admission?: Yes (3) Alcohol abuse Is this a current diagnosis for this admission?: Yes (4) Alcoholic cirrhosis of liver Is this a current diagnosis for this admission?: Yes (5) Ascites Is this a current diagnosis for this admission?: Yes (6) Chronic liver disease and cirrhosis Is this a current diagnosis for this admission?: Yes (7) Hyperammonemia Is this a current diagnosis for this admission?: Yes (8) Macrocytic anemia Is this a current diagnosis for this admission?: Yes (9) Thrombocytopenia Is this a current diagnosis for this admission?: Yes (10) Wrist drop, left wrist Is this a current diagnosis for this admission?: Yes - Assessment Summary: (1) Acute hepatic encephalopathy Is this a current diagnosis for this admission?: Yes Plan: Per Previous Physician: "Seems to be back at baseline, patient alert and oriented x3, cooperative and p leasant. Most likely due to hepatic encephalopathy Presented with elevated ammonia level. Continue lactulose, titrate to have 3 soft bowel movements 24 hours, continue rifaximin. Continue Lasix and spironolactone, monitor vitals, fall precautions." Significantly improved, back to baseline mentation AOx4, continue current medications Referral to PCP Dr. Guerrero Referral to GI Dr. Cadet Recommend upper and lower endoscopy outpatient (2) Ascites Qualifiers: Ascites type: due to alcoholic cirrhosis Qualified Code(s): K70.31 - Alcoholic cirrhosis of liver with ascites Is this a current diagnosis for this admission?: Yes Plan: Per Previous Physician: "Abdominal distention, fluid wave on physical examination and epigastric abdominal pain. Last paracentesis 4 months ago. Pending therapeutic and diagnostic paracentesis. Paracentesis delayed due to elevated INR. Already received vitamin K on admission, will give FFP and have n.p.o. after midnight for possible paracentesis tomorrow. Continue hepatic diet, continue empiric IV antibiotics for possible SBP." Paracentesis delayed due to persistently elevated INR and delayed administration of FFP, trend INR Reattempt paracentesis 11/15 successful with approximately 6 L removed, given IV albumin afterwards (3) Alcohol abuse Is this a current diagnosis for this admission?: Yes Plan: Per Previous Physician: "Does not appear to be acutely withdrawing. Denies any visual or auditory hallucination. Denies any formication. Vitals stable. Continue fall, seizure and DT precautions. As needed benzodiazepines, folic acid, thiamine, B12 and multivitamins." Counseled on continued cessation, states he has not had any alcohol for approximately 1 year (4) Alcoholic cirrhosis of liver Qualifiers: Ascites presence: with ascites Qualified Code(s): K70.31 - Alcoholic cirrhosis of liver with ascites Is this a current diagnosis for this admission?: Yes Plan: Per Previous Physician: "Due to alcoholic cirrhosis. Presented with tense ascites with epigastric abdominal pain on examination. Bilateral lower extremity petechiae, thrombocytopenia and elevated PT/INR. Last paracentesis every second, 4 L removed. Continue hepatic diet, fall precaution, monitor for bleeding. Lasix, spironolactone, rifaximin, lactulose. It is unclear whether he had EGD or not. He said he sees a liver specialist but he could not specify where is the specialist and who is a specialist. I am not quite convinced that he sees a cinnamon grinder. " poor long-term prognosis Needs outpatient evaluation for liver transplant, can be done by GI at follow- up (5) Macrocytic anemia Is this a current diagnosis for this admission?: Yes Plan: Per Previous Physician: "Likely due to EtOH abuse and cirrhosis. Continue ferrous sulfate, continue multivitamins." (6) Thrombocytopenia Is this a current diagnosis for this admission?: Yes Plan: Per Previous Physician: "Stable. Most likely due to underlying cirrhosis. Monitor for any sign of bleeding. Fall precautions. Supportive transfusions." (7) Wrist drop, left wrist Is this a current diagnosis for this admission?: Yes Plan: Per Previous Physician: "Likely traumatic. X-ray left hand no acute abnormality. Patient also on the floor by his roommate covered in urine, sure how he fell and how long he was in the floor. Patient does not recall if he had any trauma due to the fall prior to admission. Denies left upper extremity pain or swelling. No sign of trauma or fracture on physical examination. We will monitor for right now, ED consulted." PT/OT consulted, home health referral (8) Abnormal echocardiogram Is this a current diagnosis for this admission?: Yes Plan: Per Previous Physician: "On admission 2D echo showed mobile, long, thin echodense strands in the hepatic vein of unclear etiology. Suspicion of possible portal vein thrombosis were raised and follow-up abdominal ultrasound was negative for any portal vein thrombosis. Obtain GLENDA if indicated." - Additional Information Resuscitation Status: Full Code Discharge Diet: As Tolerated, Regular Discharge Activity: Activity As Tolerated, Balance Activity w/Rest Referrals: SHERRI CADET MD [ACTIVE STAFF] - (ETOH cirrhosis) JIAN GUERRERO DO [NO LOCAL MD] - (cirrhosis, anemia, wrist drop) Prescriptions: Spironolactone [Aldactone 25 mg Tablet] 100 mg PO DAILY #30 tablet Lactulose [Cephulac Syrup 20 gm/30 ml Udcup] 20 gm PO Q8A #30 udc Multivits W-Min/Ferrous Gluc [Certavite Multivit/Minerals/Iron Soln] 15 ml PO DAILY #30 ml Ferrous Sulfate [Feosol 325 mg Tablet] 325 mg PO DAILY #30 tablet Folic Acid [Folvite 1 mg Tablet] 1 mg PO DAILY #30 tablet Furosemide [Lasix 40 mg Tablet] 40 mg PO DAILY #30 tablet Midodrine HCl [Proamatine 5 mg Tablet] 10 mg PO TID #180 tablet Thiamine HCl [Thiamine 100 mg Tablet] 100 mg PO DAILY #30 tablet Home Medications: Ferrous Sulfate [Feosol 325 mg Tablet] 325 mg PO DAILY #30 tablet 11/15/20 Folic Acid [Folvite 1 mg Tablet] 1 mg PO DAILY #30 tablet 11/15/20 Furosemide [Lasix 40 mg Tablet] 40 mg PO DAILY #30 tablet 11/15/20 Lactulose [Cephulac Syrup 20 gm/30 ml Udcup] 20 gm PO Q8A #30 udc 11/15/20 Midodrine HCl [Proamatine 5 mg Tablet] 10 mg PO TID #180 tablet 11/15/20 Multivits W-Min/Ferrous Gluc [Certavite Multivit/Minerals/Iron Soln] 15 ml PO DAILY #30 ml 11/15/20 Spironolactone [Aldactone 25 mg Tablet] 100 mg PO DAILY #30 tablet 11/15/20 Thiamine HCl [Thiamine 100 mg Tablet] 100 mg PO DAILY #30 tablet 01/26/21 History of Present Illiness History of Present Illness: CRISTINA BROWNE is a 60 year old male Per Previous Physician: "As per attending physician's note CRISTINA BROWNE is a 60 year old male The patient is suffering from alcoholic liver cirrhosis with ascites. He had abdominal paracentesis on 22 October, 4 L of fluid was removed. CT scan of the abdomen and pelvis couple days later revealed cirrhosis with ascites and splenomegaly, no other significant abnormality. It is somewhat unclear whether the patient quit drinking or not. He lives alone but he has some friend who is visiting him time to time. Today he was found in his apartment being confused and the apartment was in a disarray. He was brought to the emergency department. After first dose of lactulose he is alert now. He is still somewhat confused but cooperative and pleasant. He is oriented to himself, partially oriented to time place and situation. He denies any pain and he does not appear to be in any discomfort. 11/10/2019. No acute events overnight, patient resting in bed no apparent distress, alert and oriented x2, stating that he has a rough night, does not elaborate, denies any auditory visual hallucinations, denies any chest pain, nausea, vomiting, diarrhea. 11/11/2020. No acute events overnight. Stating that he had a better night compared to yesterday, alert and oriented x3 in no apparent distress, denies any auditory or visual hallucinations, complaining of posterior headache, does not remember how he ended up to the hospital or that he had a fall, stating that he lives in a trailer with another friend who is currently out of state in [place], does have some family in [place] but he lives with another friend. Patient denies any fever, chills, nausea, vomiting, diarrhea, constipation or any urinary symptoms. 11/12/2020. No acute events noted, patient alert and oriented, stating that he could not get much sleep, otherwise denies any fever, chills, nausea, vomiting, still complaining of headache, stating that he has been able to talk to his extremity in [place] to try to find out what happened prior to the fall, patient is stating that he was told by his roommate that he found him on the floor covered in his urine, patient is still have left hand hand drop. 11/13/2020. No acute events overnight, complaining of having a restless night otherwise denies any fever, chills, nausea, vomiting. Headache is improving. P.o. tolerant, having normal bowel and bladder movements. Was scheduled for paracentesis however it was delayed as patient has elevated INR." 11/14 Patient was given FFP today anticipation of paracentesis however plasma was not infused in time and INR was not checked in time to have paracentesis today. Check INR in a.m. and hopefully have paracentesis on 11/15. Patient's abdomen is quite distended and he overall has a quite poor long-term prognosis. INR is elevated and ammonia is lower. PT to evaluate for left wrist drop. Reportedly, patient is homeless. Aldactone/Lasix can be uptitrated once per week to account for delayed metabolism and effect of medications on cirrhotics. On day of discharge, patient very well-appearing and completely alert and oriented. Appears to be back to baseline mentation. He will be discharged on current cirrhosis medications including Lasix and Aldactone. Paracentesis performed today with 6 L removed followed by IV albumin infusion. Patient tolerated procedure very well. Initial fluid analysis does not show evidence of SBP. Patient remains afebrile. Patient needs follow-up with PCP as well as GI. Patient states he has not had any alcohol in approximately 1 year and continues to abstain. PT/OT ordered for left wrist drop and to help check on the patient after discharge. Patient instructed to return to the hospital with any fevers or tense enlargement of abdomen which may require additional paracentesis. Physical Exam Vital Signs: Temp Pulse Resp BP Pulse Ox 97.9 F 77 16 114/59 L 98 11/15/20 15:41 11/15/20 15:41 11/15/20 15:41 11/15/20 15:41 11/15/20 15:41 Intake & Output 11/14/20 11/15/20 11/16/20 06:59 06:59 06:59 Intake Total 1094 2660 822 Output Total 200 250 100 Balance 894 2410 722 Weight 93.1 kg 92.3 kg Exam: General appearance: PRESENT: no acute distress, chronically ill-appearing white male, states he feels well today Head exam: PRESENT: atraumatic, normocephalic Eye exam: PRESENT: conjunctiva pink. ABSENT: scleral icterus Mouth exam: PRESENT: moist Respiratory exam: PRESENT: clear to auscultation andree. ABSENT: rales, rhonchi, wheezes Cardiovascular exam: PRESENT: RRR. ABSENT: diastolic murmur, rubs, systolic murmur GI/Abdominal exam: PRESENT: normal bowel sounds, mildly distended abdomen much improved after paracentesis ABSENT: guarding, mass, organolmegaly, rebound, tenderness Neurological exam: PRESENT: alert, awake, oriented to person, oriented to place, oriented to time, oriented to situation Psychiatric exam: PRESENT: appropriate affect, normal mood Skin exam: PRESENT: dry, intact, warm Results Laboratory Results: WBC 5.2 10^3/uL (4.0-10.5) 11/15/20 06:53 RBC 2.70 10^6/uL (4.35-5.55) L 11/15/20 06:53 Hgb 10.1 g/dL (13.5-17.0) L 11/15/20 06:53 Hct 29.1 % (37.9-51.0) L 11/15/20 06:53 MCV 108 fl (80-97) H 11/15/20 06:53 MCH 37.6 pg (27.0-33.4) H 11/15/20 06:53 MCHC 34.8 g/dL (32.0-36.0) 11/15/20 06:53 RDW 15.2 % (11.5-14.0) H 11/15/20 06:53 Plt Count 56 10^3/uL (150-450) L 11/15/20 06:53 Lymph % (Auto) 23.3 % (13-45) 11/15/20 06:53 [place] % (Auto) 14.7 % (3-13) H 11/15/20 06:53 Eos % (Auto) 3.6 % (0-6) 11/15/20 06:53 Baso % (Auto) 0.9 % (0-2) 11/15/20 06:53 Reticulocyte # 0.052 10^6/uL (0.028-0.122) 11/10/20 05:57 Absolute Neuts (auto) 3.0 10^3/uL (1.7-8.2) 11/15/20 06:53 Absolute Lymphs (auto) 1.2 10^3/uL (0.5-4.7) 11/15/20 06:53 Absolute Monos (auto) 0.8 10^3/uL (0.1-1.4) 11/15/20 06:53 Absolute Eos (auto) 0.2 10^3/uL (0.0-0.6) 11/15/20 06:53 Absolute Basos (auto) 0.0 10^3/uL (0.0-0.2) 11/15/20 06:53 Seg Neutrophils % 57.5 % (42-78) 11/15/20 06:53 Retic Count (auto) 1.99 % (0.66-2.85) 11/10/20 05:57 PT 23.4 SEC (11.4-15.4) H 11/15/20 06:53 INR 2.08 11/15/20 06:53 VBG pH 7.44 (7.30-7.42) H 11/09/20 17:16 VBG pCO2 32.8 mmHg (35-63) L 11/09/20 17:16 VBG HCO3 21.8 mmol/L (20-32) 11/09/20 17:16 VBG Base Excess -1.3 mmol/L 11/09/20 17:16 Sodium 133.0 mmol/L (137-145) L 11/15/20 06:53 Potassium 4.4 mmol/L (3.6-5.0) 11/15/20 06:53 Chloride 109 mmol/L (98-107) H 11/15/20 06:53 Carbon Dioxide 22 mmol/L (22-30) 11/15/20 06:53 Anion Gap 2 (5-19) L 11/15/20 06:53 BUN 17 mg/dL (7-20) 11/15/20 06:53 Creatinine 0.64 mg/dL (0.52-1.25) 11/15/20 06:53 Est GFR ( Amer) > 60 (>60) 11/15/20 06:53 Est GFR (MDRD) Non-Af > 60 (>60) 11/15/20 06:53 Glucose 79 mg/dL (75-110) 11/15/20 06:53 POC Glucose 94 mg/dL (70-110) 11/13/20 06:15 Hemoglobin A1c % 4.1 % (4.7-6.0) L 11/10/20 05:57 Lactic Acid 1.6 mmol/L (0.7-2.1) 11/10/20 01:37 Calcium 7.6 mg/dL (8.4-10.2) L 11/15/20 06:53 Magnesium 1.7 mg/dL (1.6-2.3) 11/13/20 05:16 Iron 74.5 ug/dL (49-181) 11/10/20 05:57 TIBC 221 ug/dL (250-450) L 11/10/20 05:57 % Saturation 34 % 11/10/20 05:57 Ferritin 241.00 ng/mL (17.9-464.0) 11/10/20 05:57 Total Bilirubin 3.1 mg/dL (0.2-1.3) H 11/13/20 05:16 Direct Bilirubin 1.1 mg/dL (0.0-0.4) H 11/13/20 05:16 Neonat Total Bilirubin Not Reportable 11/13/20 05:16 Neonat Direct Bilirubin Not Reportable 11/13/20 05:16 Neonat Indirect Bili Not Reportable 11/13/20 05:16 AST 113 U/L (17-59) H 11/13/20 05:16 ALT 66 U/L (<50) H 11/13/20 05:16 Alkaline Phosphatase 169 U/L (38-126) H 11/13/20 05:16 Ammonia 45.4 umol/L (9-33) H 11/14/20 04:27 Creatine Kinase 584 U/L (55-170) H 11/11/20 11:50 Total Protein 6.1 g/dL (6.3-8.2) L 11/13/20 05:16 Albumin 2.0 g/dL (3.5-5.0) L 11/13/20 05:16 Vitamin B12 999.0 pg/mL (239-931) H 11/10/20 05:57 Folate 7.86 ng/mL (>2.76) 11/10/20 05:57 TSH 7.44 uIU/mL (0.47-4.68) H 11/10/20 05:57 Free T4 1.44 ng/dL (0.78-2.19) 11/11/20 05:43 Urine Color LEIGH ANN 11/09/20 21:52 Urine Appearance CLEAR 11/09/20 21:52 Urine pH 5.0 (5.0-9.0) 11/09/20 21:52 Ur Specific [place] 1.030 11/09/20 21:52 Urine Protein 30 mg/dL (NEGATIVE) H 11/09/20 21:52 Urine Glucose (UA) NEGATIVE mg/dL (NEGATIVE) 11/09/20 21:52 Urine Ketones TRACE mg/dL (NEGATIVE) H 11/09/20 21:52 Urine Blood NEGATIVE (NEGATIVE) 11/09/20 21:52 Urine Nitrite NEGATIVE (NEGATIVE) 11/09/20 21:52 Urine Bilirubin NEGATIVE (NEGATIVE) 11/09/20 21:52 Urine Urobilinogen 4.0 mg/dL (<2.0) H 11/09/20 21:52 Ur Leukocyte Esterase NEGATIVE (NEGATIVE) 11/09/20 21:52 Urine WBC (Auto) 1 /HPF 11/09/20 21:52 Urine RBC (Auto) 0 /HPF 11/09/20 21:52 Squamous Epi Cells Auto <1 /HPF 11/09/20 21:52 Urine Mucus (Auto) FEW /LPF 11/09/20 21:52 Urine Ascorbic Acid 40 (NEGATIVE) H 11/09/20 21:52 Fluid Type 11/15/20 09:50 Fluid Source ASCITES 11/15/20 09:50 Fluid Color YELLOW 11/15/20 09:50 Fluid Appearance CLEAR 11/15/20 09:50 Fluid Viscosity LIQUID 11/15/20 09:50 Fluid WBC 125 /uL 11/15/20 09:50 Fluid RBC 480 /uL 11/15/20 09:50 Fluid Seg Neutrophils 28 % 11/15/20 09:50 Fluid Lymphocytes 47 % 11/15/20 09:50 Fluid Monocytes 25 % 11/15/20 09:50 Fluid Eosinophils 0 % 11/15/20 09:50 Fluid Basophils 0 % 11/15/20 09:50 Salicylates < 1.0 mg/dL (2.0-20.0) L 11/09/20 17:16 Urine Opiates Screen NEGATIVE 11/09/20 21:52 Urine Methadone Screen NEGATIVE 11/09/20 21:52 Acetaminophen < 10 ug/mL (10-30) L 11/09/20 17:16 Ur Barbiturates Screen NEGATIVE 11/09/20 21:52 Ur Phencyclidine Scrn NEGATIVE 11/09/20 21:52 Ur Amphetamines Screen NEGATIVE 11/09/20 21:52 U Benzodiazepines Scrn NEGATIVE 11/09/20 21:52 Urine Cocaine Screen NEGATIVE 11/09/20 21:52 U Marijuana (THC) Screen UNCONFIRMED POSITIVE 11/09/20 21:52 Serum Alcohol < 10 mg/dL (NONE DETECTED) 11/09/20 17:16 RPR NONREACTIVE (NONREACTIVE) 11/09/20 17:16 Blood Type B POSITIVE 11/14/20 12:47 Impressions: Chest X-Ray 11/09/20 17:48 IMPRESSION: NO ACUTE RADIOGRAPHIC FINDING IN THE CHEST. Head CT 11/09/20 20:04 IMPRESSION: 1. No acute intracranial abnormalities. 2. Mild left maxillary sinus disease. 3. Suggestion of small scalp hematoma left vertex. TECHNICAL DOCUMENTATION: Quality ID # [id number]: Final reports with documentation of one or more dose reduction techniques (e.g., Automated exposure control, adjustment of the mA and/or kV according to patient size, use of iterative reconstruction technique) copyright 2011 [employer]- All Rights Reserved Hand X-Ray 11/11/20 13:34 IMPRESSION: No acute osseous abnormality of the left hand. Abdomen Ultrasound 11/13/20 07:45 IMPRESSION: 1. HETEROGENOUS NODULAR ECHOTEXTURE OF THE LIVER CONSISTENT WITH CIRRHOSIS. NO FOCAL LESIONS. PATENT MAIN PORTAL VEIN WITH NO THROMBUS VISUALIZED. 2. LARGE AMOUNT OF ASCITES. Paracentesis Ultrasound 11/15/20 00:00 IMPRESSION: Successful ultrasound-guided paracentesis Plan Plan of Treatment: Follow-up with PCP Follow-up with GI Avoid alcohol and tobacco products Time Spent: Greater than 30 Minutes Stroke Is this a Stroke Patient?: No Acute Heart Failure Is this a Heart Failure Patient?: No
[2020-11-15] MEDS ORDERED: ALBUMIN HUMAN 12.5 GM/50 ML RTUINJ IV ONE (18:00)
[2020-11-15 18:24] VITALS: BP 126/87
[2020-11-16] MEDS ORDERED: MULTIVITS W-MIN/IRON SOLN 60 ML PO SCH (14:00)
[2020-11-17 07:30] LABS: AMYLASE BODY FLUID 43 U/L (.); LDH BODY FLUID 62 IU/L (.)
== END 2020-11-15 18:50 | disposition home or self-care (01) | DRG 434 ==
LOC: ER 17:01 → EH 21:44 → 3S 23:51 → 5 11-12 22:59
PROVIDERS: ADMIT Internal Medicine; ATTEND Internal Medicine
PROC: B24BZZZ Ultrasonography of Heart with Aorta (ICD-10-PCS; 2020-11-10)
PROC: 30233K1 Transfusion of Nonautologous Frozen Plasma into Peripheral Vein, Percutaneous Approach (ICD-10-PCS; 2020-11-14)
PROC: 30233R1 Transfusion of Nonautologous Platelets into Peripheral Vein, Percutaneous Approach (ICD-10-PCS; 2020-11-14)
PROC: 0W9G3ZZ Drainage of Peritoneal Cavity, Percutaneous Approach (ICD-10-PCS; principal; 2020-11-15)
DX: K70.31 Alcoholic cirrhosis of liver with ascites (principal); K72.90 Hepatic failure, unspecified without coma; M21.332 Wrist drop, left wrist; I10 Essential (primary) hypertension; F10.20 Alcohol dependence, uncomplicated; F17.200 Nicotine dependence, unspecified, uncomplicated; D69.6 Thrombocytopenia, unspecified; D53.9 Nutritional anemia, unspecified; R16.1 Splenomegaly, not elsewhere classified; R93.1 Abnormal findings on diagnostic imaging of heart and coronary circulation; Z87.828 Personal history of other (healed) physical injury and trauma
CPT/HCPCS: 36415; 36430; 49083; 70450; 71045; 76705; 80048; 80053; 80307; 81001; 82140; 82150; 82370; 82550; 82607; 82728; 82746; 82803; 82945; 82962; 83036; 83540; 83550; 83605; 83615; 83735; 83986; 84439; 84443; 85025; 85027; 85045; 85610; 86592; 86900; 86901; 87040; 87070; 87075; 87101; 87205; 87252; 89050; 93005; 93010; 93306; 93976; 96360; 99285; A9270-GY; J0696; J3411; J3420; J3490; J7042; J7060; P9017; P9035; P9047